=== PATIENT | male | born 1980 | race African-American/Black ===

== ENCOUNTER 2019-05-19 13:36 | Outpatient (CLI) | payer OTHER ==
[~2019-05-19] VITALS: Ht 189 cm; Wt 99.1 kg
== END 2019-05-19 13:48 | disposition home or self-care (01) ==
LOC: PREOP 13:36
PROVIDERS: ATTEND Surgery
DX: Z01.818 Encounter for other preprocedural examination (principal)

== ENCOUNTER 2019-07-09 08:25 | Outpatient (CLI) | payer OTHER ==
[~2019-07-09] VITALS: Ht 188 cm; Wt 100.0 kg
== END 2019-07-09 12:08 ==
LOC: PREOP 08:25
PROVIDERS: ATTEND Surgery
DX: Z01.818 Encounter for other preprocedural examination (principal)

== ENCOUNTER 2019-07-15 07:09 | Inpatient (IN) | payer OTHER ==
[~2019-07-15] VITALS: Ht 188 cm; Wt 100.0 kg
[2019-07-15] VITALS (10 sets, daily range): BP systolic 119–144; BP diastolic 60–91
[2019-07-15] MEDS ORDERED: SEVOFLURANE (ULTANE) 15 ML INHAL SOLN ONE ×3 (07:10→11:38)
[2019-07-15] MEDS ORDERED: fentaNYL INJECTION 100 MCG/2 ML AMP ONE (07:10)
[2019-07-15] MEDS ORDERED: SUCCINYLCHOLINE INJ 100 MG/5 ML SYR ONE (07:10)
[2019-07-15] MEDS ORDERED: ONDANSETRON 4 MG/2 ML (SDV) Z0FRAN ONE (07:10)
[2019-07-15] MEDS ORDERED: ROCURONIUM 10 MG/ML 5 ML SYRINGE IV ONE ×2 (07:10→09:41)
[2019-07-15] MEDS ORDERED: proPOfol 200 MG/20 ML (DIPRIVAN) VIAL IV ONE ×2 (07:10→10:50)
[2019-07-15] MEDS ORDERED: LIDOCAINE PF 2% 5 ML (XYLOCAINE) VIAL ONE (07:10)
[2019-07-15] MEDS ORDERED: DEXAMETHASONE 10 MG/ML (DECADRON) 1 ML VIAL ONE (07:10)
[2019-07-15] MEDS ORDERED: MIDAZOLAM 2 MG/2 ML (VERSED) VIAL ONE (07:11)
[2019-07-15] MEDS ORDERED: CATHETER FLUSH 10 ML SYR IV PRN (07:30)
[2019-07-15] MEDS ORDERED: ceFAZolin 2 GM IV Premixed 50 ML IV ONE (07:30)
[2019-07-15 07:44] LABS: BASOPHILS % (AUTO) 1 % (0-10); EOSINOPHILS # (AUTO) 0.1 10^3/uL (0.0-0.3); EOSINOPHILS % (AUTO) 2 % (0-10); HEMATOCRIT 46 % (40-54); HEMOGLOBIN 15.3 G/DL (13.3-17.7); LYMPHOCYTES # (AUTO) 2.1 X 10^3 (1.0-4.0); LYMPHOCYTES % (AUTO) 33 % (12-44); MEAN CORPUSCULAR HEMOGLOBIN 28 PG (25-34); MEAN CORPUSCULAR HGB CONC 33 G/DL (32-36); MEAN CORPUSCULAR VOLUME 84 FL (80-99); MEAN PLATELET VOLUME 10.5 FL (7.4-10.4); MONOCYTES # (AUTO) 0.7 X 10^3 (0.0-1.0); MONOCYTES % (AUTO) 11 % (0-12); NEUTROPHILS # (AUTO) 3.5 X 10^3 (1.8-7.8); NEUTROPHILS % (AUTO) 55 % (42-75); PLATELET COUNT 215 10^3/uL (130-400); RED CELL DISTRIBUTION WIDTH 14.8 % (10.0-14.5); WHITE BLOOD COUNT 6.3 10^3/uL (4.3-11.0)
[2019-07-15] MEDS ORDERED: MIDAZOLAM 2 MG/2 ML (VERSED) VIAL IV ONE (07:45)
[2019-07-15] MEDS: LACTATED RINGERS 1,000 ML IV PRN ×3 (07:50→11:41)
--- NOTE | 2019-07-15 08:02 | Progress Note-Pre Operative ---
Pre-Operative Progress Note H&P Reviewed The H&P was reviewed, patient examined and no changes noted. Time Seen by Provider: 07:58 Date H&P Reviewed: Jul 15, 2019 Time H&P Reviewed: 07:59 Pre-Operative Diagnosis: Large sigmoid Colon polyp COREY ARTEAGA DO Jul 15, 2019 08:02
[2019-07-15] MEDS ORDERED: metroNIDAZOLE 500MG/100ML IVPB 100 ML ONE (08:16)
[2019-07-15] MEDS ORDERED: BUP/EPI 0.5% 1:200,000 (SENSORCAINE) 30 ML VIAL ONE (08:49)
[2019-07-15] MEDS ORDERED: metroNIDAZOLE 500MG/100ML IVPB 100 ML IV ONE (09:00)
[2019-07-15] MEDS ORDERED: GLYCOPYRROLATE 0.2 MG/ML (ROBINUL) 2 ML VIAL ONE ×2 (09:09→10:48)
[2019-07-15] MEDS ORDERED: HYDROmorphone 2 MG/ML VIAL (DILAUDID) ONE (09:20)
[2019-07-15] MEDS ORDERED: ESMOLOL 100 MG/10 ML (BREVIBLOC) VIAL ONE (10:16)
[2019-07-15] MEDS ORDERED: LABETALOL HCL 20 MG/4 ML VIAL ONE (10:16)
[2019-07-15] MEDS ORDERED: NEOSTIGMINE 3 MG/3 ML VIAL ONE (10:48)
[2019-07-15] MEDS ORDERED: ROPIVACAINE 5MG/ML 30ML VIAL ONE (10:50)
[2019-07-15] MEDS ORDERED: KETOROLAC 30 MG/ML VIAL ONE (10:53)
[2019-07-15] MEDS: KETOROLAC 30 MG/ML VIAL IVP SCH ×3 (11:10→22:26)
--- NOTE | 2019-07-15 11:12 | Progress Note-Post Operative ---
Post-Operative Progess Note Surgeon (s)/Commercial Construction Estimator (s) Surgeon COREY ARTEAGA DO Commercial Construction Estimator: Wily Pre-Operative Diagnosis Large sigmoid Colon polyp Post-Operative Diagnosis same pending path Procedure & Operative Findings Date of Procedure 07/15/19 Procedure Performed/Findings 1. Lap Hand asst Sigmoid colon resection 2. Appendectomy Anesthesia Type GET Estimated Blood Loss Estimated blood loss (mL): 50ml Specimens/Packing Specimens Removed sigmoid colon appendix peritoneal mass COREY ARTEAGA DO Jul 15, 2019 11:12
[2019-07-15] MEDS ORDERED: ONDANSETRON 4 MG/2 ML (SDV) Z0FRAN IVP PRN ×2 (11:15→11:45)
[2019-07-15] MEDS ORDERED: HYDROmorphone 2 MG/ML VIAL (DILAUDID) IV ONE (11:45)
[2019-07-15] MEDS: LACTATED RINGERS 1,000 ML IV SCH ×2 (14:41→19:37)
[2019-07-15] MEDS: ACETAMINOPHEN 500 MG TAB (TYLENOL) PO SCH ×2 (14:42→22:30)
--- NOTE | 2019-07-15 15:32 | OPERATIVE REPORT ---
DATE OF SERVICE: 07/15/2019 PREOPERATIVE DIAGNOSIS: Large sigmoid colon polyp. POSTOPERATIVE DIAGNOSIS: Large sigmoid colon polyp, pending pathology. PROCEDURES: 1. Laparoscopic hand assisted sigmoid colon resection. 2. Appendectomy. SURGEON: Shane Boyd DO MISSILE MECHANIC: Paul Julien DO. ANESTHESIA: General endotracheal tube. SPECIMEN: 1. Portion of sigmoid colon. 2. Appendix. BLOOD LOSS: Less than 50 mL. FLUIDS: Per anesthesia. POSTOPERATIVE CONDITION: Stable. INDICATION FOR PROCEDURE: The patient is a 39-year-old male who had rectal bleeding and a colonoscopy showed multiple large polyps, one was so large we could not remove it. Therefore, decided to remove it so it would not turn into cancer. It may not have been a precancerous lesion because the biopsy did not show adenomatous polyp; it was possible that anohter section could be adenoma and felt like it was so big that it is best to remove this. FINDINGS: The patient had a sigmoid colon resection as well as the appendix was thickened, firm, looked like it was bigger than a centimeter and so it was removed as well. PROCEDURE NOTE: After informed consent was obtained, the patient was brought to the operating room, placed on the table in lithotomy position. He was sterilely prepped and draped in normal fashion. Local lidocaine was used to infiltrate the skin just above the umbilicus to below this and then made an incision with #15 blade, carried down through the skin into subcutaneous tissue, then deepened down to subcutaneous tissue with Bovie electrocautery down to the fascia. Fascia was incised with Bovie electrocautery and bluntly entered the abdomen and then increased the incision superiorly and inferiorly with Bovie electrocautery and then placed a wound protector and then held the abdominal wall up and then placed a 12 mm trocar port in the left side of the abdomen about the height of the umbilicus using local lidocaine, 11 blade for stab incision and then the VersaStep system done under direct visualization, watched to come in and place the port and then attached the GelPort into the wound protector and then using a 12 mm port, created pneumoperitoneum. At this point, then made another small incision in the right side of the abdomen. Using first local lidocaine, 11 blade for stab incision and VersaStep system, all done under direct visualization, placed a 5 mm port. The patient placed slightly Trendelenburg. There were some adhesions in the left pelvis. Picture was taken. These were taken down with Bovie electrocautery spatula cautery to do this and then came along the white line of Toldt in the left pericolic gutter with the spatula cautery to free this sigmoid colon and descending colon up, could see the previous site of tattooing. This was a tattoo below the mass. Continued the cautery to score the mesentery down and then able to get under and below the area of tattooing with blunt dissection as well as with Bovie electrocautery, able to make a defect in the mesentery and then able to get under and around the sigmoid colon upper portion of the rectum. At this point, then opened. Placed a contour stapler across the colon, clamped and fired, thereby transecting this and then at this point, noted the appendix, I felt that it was thickened, firm, looked like it has been a cm, elected to take this out using LigaSure clamping, coagulating and transecting coming across the mesoappendix in this fashion and then using an Endo-SOHEILA to clamp across the base of appendix, clamped and fired, thereby transecting it, passed this off table. Then come across the mesentery of the sigmoid colon coming from inferior to superior going about 6 inches above the tattooed area and then while we did this with the port back on and then opened the port pulled this portion of colon up and then placed, got under the mesentery with blunt dissection as well as Bovie electrocautery and then placed a pursestring device and then above this pursestring clamped it and then above this pursestring placed a bowel clamp and then cut this portion off and fired the pursestring and then removed the colon. I then placed a 29 ILS anvil in the superior aspect of the descending colon and then tied this down with the purse pursestring we had previously placed. Next freed up some of the fat around this and then I went below and placed a 25, then 28 and 31 rectal dilator. Then placed the ILS stapler through the rectum up and could see this come right to the edge of the previous resection of this inferior portion and then brought out the trocar through the tinea. Attached the anvil to the trocar and then tightened this down. Tightened all the way to the green area, held for 30 seconds, then clamped and fired, held for 20 seconds and then turned 3/4 turn to remove this stapling device. Removed very easily, then placed saline in the abdomen to cover the staple line. Dr. Julien held the colon above the staple line and I used a rigid sigmoidoscopy and then insufflated. No air bubble seen. This was a good anastomosis and removed this and allowed the air to escape. I then checked the donuts on the back table, a good donut pieces of tissue. I then changed my gown and gloves. Dr. Julien now switched gloves and at this point, we then closed the incision closing from the inferior portion to the superior portion with #1 double stranded PDS and then tying this to itself. Reinsufflated and use scope to check the incision; which looked good. Took a picture of this and then removed all ports under direct visualization, allowed pneumoperitoneum to escape and then closed all the incision with filiberto then irrigated the midline incision then closed the midline incision with filiberto. Area was cleaned and dried, dressing was placed. The patient tolerated the procedure. Sponge, instrument and needle count correct at the end of the case. Dr. Julien assisted in this case helping to make incisions, close incisions, hold anatomy out of the way and identify anatomy as well. Job ID: [id number] DocumentID: [id number] Dictated Date: 07/15/2019 13:16:45 Laundry Helper Date: 07/15/2019 15:32:20 Dictated By: DO CHU CERON
[2019-07-15] MEDS: ceFAZolin 2 GM IV Premixed 50 ML IV SCH (16:27)
[2019-07-15] MEDS: metroNIDAZOLE 500MG/100ML IVPB 100 ML IV SCH (16:27)
[2019-07-15] MEDS: HYDROcodone/APAP 5 MG/325 MG (LORTAB) TAB PO PRN (18:46)
[2019-07-16 00:22] VITALS: BP 130/70
[2019-07-16] MEDS: ceFAZolin 2 GM IV Premixed 50 ML IV SCH (00:59)
[2019-07-16] MEDS: metroNIDAZOLE 500MG/100ML IVPB 100 ML IV SCH (01:38)
[2019-07-16] MEDS: HYDROcodone/APAP 5 MG/325 MG (LORTAB) TAB PO PRN ×3 (01:47→20:09)
[2019-07-16] MEDS: LACTATED RINGERS 1,000 ML IV SCH ×2 (03:16→10:37)
[2019-07-16 03:42] VITALS: BP 149/71
[2019-07-16] MEDS: ACETAMINOPHEN 500 MG TAB (TYLENOL) PO SCH ×3 (05:29→22:00)
[2019-07-16] MEDS: KETOROLAC 30 MG/ML VIAL IVP SCH ×4 (05:47→23:03)
[2019-07-16 08:00] VITALS: BP 144/76
[2019-07-16] MEDS ORDERED: PANTOPRAZOLE 40 MG (PROTONIX) VIAL IVP SCH (09:00)
[2019-07-16] MEDS: ENOXAPARIN 40 MG/0.4 ML (LOVENOX) SYR SC SCH (10:45)
[2019-07-16 12:00] VITALS: BP 143/77
--- NOTE | 2019-07-16 12:20 | Progress Note - Surgery ---
Subjective Time Seen by a Provider: 11:02 Subjective/Events-last exam Pt seen and examined, states minimal pain, having some flatus and is tolerating clears. Review of Systems Pulmonary: No Dyspnea, No Cough Cardiovascular: No: Chest Pain, Palpitations Gastrointestinal: No: Nausea, Vomiting Objective Exam Vital Signs Date Time Temp Pulse Resp B/P (MAP) Pulse Ox O2 Delivery O2 Flow Rate FiO2 07/16/19 09:00 Room Air 07/16/19 08:00 37.0 76 20 144/76 (98) 93 Room Air 07/16/19 03:42 38.1 90 18 149/71 (97) 100 Room Air 07/16/19 00:22 37.3 76 20 130/70 (90) 93 Room Air 07/15/19 21:00 Room Air 07/15/19 20:20 36.9 94 16 137/78 (97) 100 Room Air 07/15/19 17:23 92 Room Air 10.00 07/15/19 16:16 36.5 92 16 144/88 (106) 92 Room Air 07/15/19 15:36 93 Room Air 07/15/19 12:30 Room Air 07/15/19 12:30 36.8 20 135/82 (99) 97 Room Air 07/15/19 12:20 20 140/91 (107) 97 Room Air I & O 07/16/19 07:00 Intake Total 4630 ml Output Total 3150 ml Balance 1480 ml Capillary Refill : Less Than 3 SecondsLess Than 3 Seconds General Appearance: No Apparent Distress HEENT: PERRL/EOMI Respiratory: Lungs Clear, Normal Breath Sounds, No Accessory Muscle Use Cardiovascular: Regular Rate, Rhythm, No Murmur Gastrointestinal: soft, distended (very minimally), tenderness (minimal at incision), other (incisions are c/d/i) Results Lab Microbiology 07/15/19 MRSA Screen - Final, Complete MRSA not isolated Assessment/Plan Assessment/Plan Assessment/Plan S/P Sigmoid colon resection Increase diet to soft, continue ambulation and IS use. Clinical Quality Measures DVT/VTE Risk/Contraindication: Risk Factor Score Per Nursin RFS Level Per Nursing on Admit: 1=Low/No VTE PPX COREY ARTEAGA DO Jul 16, 2019 12:20
[2019-07-16 16:00] VITALS: BP 138/70
[2019-07-16 20:00] VITALS: BP 136/88
[2019-07-17] VITALS: BP_SYST 128; BP_SYST 129; BP_DIAS 76; BP_DIAS 78
[2019-07-17] MEDS: HYDROcodone/APAP 5 MG/325 MG (LORTAB) TAB PO PRN ×2 (02:26→09:57)
[2019-07-17 04:00] VITALS: BP 129/74
[2019-07-17] MEDS: KETOROLAC 30 MG/ML VIAL IVP SCH ×2 (05:30→10:47)
[2019-07-17] MEDS: ACETAMINOPHEN 500 MG TAB (TYLENOL) PO SCH (06:00)
[2019-07-17 06:01] VITALS: BP 129/74
--- NOTE | 2019-07-17 08:47 | Anesthesia-General Post-Op ---
General Patient Condition Mental Status/LOC: Same as Preop Cardiovascular: Satisfactory Nausea/Vomiting: Absent Respiratory: Satisfactory Pain: Controlled Complications: Absent Post Op Complications Complications None Follow Up Care/Instructions Patient Instructions None needed. Anesthesia/Patient Condition Patient Condition Patient is doing well, no complaints, stable vital signs, no apparent adverse anesthesia problems. No complications reported per nursing. MARLON ARORA CRNA Jul 17, 2019 08:47
[2019-07-17 08:49] VITALS: BP 133/78
[2019-07-17] MEDS: ENOXAPARIN 40 MG/0.4 ML (LOVENOX) SYR SC SCH (10:47)
--- NOTE | 2019-07-17 11:06 | Progress Note - Surgery ---
Subjective Time Seen by a Provider: 10:58 Subjective/Events-last exam Pt seen and examined, states he is doing fine but is worried about pain control when he goes home. Review of Systems General: No Chills, No Night Sweats Pulmonary: No Dyspnea, No Cough Cardiovascular: No: Chest Pain, Palpitations Gastrointestinal: No: Nausea, Vomiting Objective Exam Vital Signs Date Time Temp Pulse Resp B/P (MAP) Pulse Ox O2 Delivery O2 Flow Rate FiO2 07/17/19 08:49 37.3 71 18 133/78 (96) 92 Room Air 07/17/19 08:05 Room Air 07/17/19 06:01 36.8 78 18 129/74 (92) 93 Room Air 07/17/19 04:00 36.8 78 18 129/74 (92) 93 Room Air 07/17/19 00:00 36.5 64 18 128/78 (95) 91 Room Air 07/16/19 20:30 93 Room Air 07/16/19 20:00 36.8 71 18 136/88 (104) 97 Room Air 07/16/19 16:00 37.0 81 16 138/70 (92) 95 Room Air 07/16/19 12:00 37.2 73 20 143/77 (99) 95 Room Air I & O 07/17/19 07:00 Intake Total 1880 ml Output Total 750 ml Balance 1130 ml Capillary Refill : Less Than 3 SecondsLess Than 3 Seconds General Appearance: No Apparent Distress Respiratory: Lungs Clear, Normal Breath Sounds, No Accessory Muscle Use Cardiovascular: Regular Rate, Rhythm, No Murmur Gastrointestinal: soft; No distended; tenderness (minimal at incision), other (incisions are c/d/i) Results Lab Laboratory Tests 07/16/19 12:18: Glucometer 132H Microbiology 07/15/19 MRSA Screen - Final, Complete MRSA not isolated Assessment/Plan Assessment/Plan Assessment/Plan S/P Sigmoid colon resection D/C IV and D/C home Clinical Quality Measures DVT/VTE Risk/Contraindication: Risk Factor Score Per Nursin RFS Level Per Nursing on Admit: 1=Low/No VTE PPX COREY ARTEAGA DO Jul 17, 2019 11:06
[2019-07-17] MEDS ORDERED: KETO10TA PO (11:09)
--- NOTE | 2019-07-17 11:11 | Discharge Inst-Surgical ---
Discharge Inst-Surgical Depart Medication/Instructions New, Converted or Re-Newed RX: Transmitted to Pharmacy Patient Instructions Follow up Appt: Make appointment for next week. [phone] Instructions: No lifting greater than 20 pounds. No strenuous activity. May shower in 24 hours, no tub bath or soaking. Use incentive spirometer at home as directed. No Smoking Skin/Wound Care: Care of filiberto, keep clean and dry. Symptoms to Report: Appetite Changes, Extremity Discoloration, Numbness/Tingling, Swelling Increased, Bleeding Excessive, Eyesight Changes, Pain Increased, Urine Color Change, Constipation(Persistent), Fever over 101 degree F, Pain/Pressure in chest, Urinating Difficulty, Cough Up/Vomit Blood, Heart Beat Irreg/Pounding, Pain/Pressure in jaw, Cramps in feet or legs, Lightheadedness, Pain/Pressure in shoulder, Diarrhea(Persistent), Memory Changes Suddenly, Questions/Concerns, Weight gain consecutive days, Dizziness/Fainting, Nausea/Vomiting, Shortness of Breath, Weight gain over 2 pounds If questions or concerns contact your physician Or seek help at emergency department. Activity Activity as Tolerated: Yes Activity Instructions: Avoid Stress to Incision Driving Instructions: No Driving/Refer to Dr. Johnson Discharge Diet: No Restrictions Diet After 24 Hours: Clear Liquid if Nauseous If Any Problems/Questions/Issu: Contact Your Physician, Go to Emergency Room Skin/Wound Care Infection Signs and Symptoms: Increased Redness, Foul Odor of Wound, Increased Drainage, Skin Itchy or Has a Rash, Increased Swelling, Temperature Above 101 F Bathing Instructions: Shower Stitches/Filiberto/Dermabond Dis: Care of COREY Layton DO Jul 17, 2019 11:11
[2019-07-17 11:51] VITALS: BP 148/81
--- NOTE | 2019-07-17 14:19 | NUR ---
ADÁN PEÑA demonstrates understanding of discharge instructions and accurately returns instructions upon questioning. Copy of Post-Discharge Instructions and Medication Discharge Instructions given to pt. ADÁN PEÑA is able to manage continuing needs after discharge. Patients belongings returned to pt. Skin dry, midline incision noted with 3 lap sites all dressings in place; no breakdown noted. Patient discharged from [facility] on 07/17/2019 at 1420 . ADÁN PEÑA left floor via , accompanied by staff.
[2019-07-17 14:20] VITALS: BP 148/81
== END 2019-07-17 14:20 | disposition home or self-care (01) | DRG 342 ==
LOC: 4TH 07:09 → SURG 07:10 → 4TH 12:30
PROVIDERS: ADMIT Surgery; ATTEND Surgery
PROC: 0DTJ0ZZ Resection of Appendix, Open Approach (ICD-10-PCS; 2019-07-15)
PROC: 0DBN0ZX Excision of Sigmoid Colon, Open Approach, Diagnostic (ICD-10-PCS; principal; 2019-07-15 09:39)
DX: D12.5 Benign neoplasm of sigmoid colon (principal); K38.8 Other specified diseases of appendix; K92.2 Gastrointestinal hemorrhage, unspecified; K21.9 Gastro-esophageal reflux disease without esophagitis; K64.8 Other hemorrhoids; F17.210 Nicotine dependence, cigarettes, uncomplicated; Z80.0 Family history of malignant neoplasm of digestive organs
CPT/HCPCS: 36415; 82962; 85025; 86850; 86900; 86901; 87081; 88304; 88305; 88307; 94664

== ENCOUNTER 2022-04-10 23:06 | Emergency (ER) | payer OTHER ==
[~2022-04-10 23:06] MED LIST: KETO10TA PO
--- NOTE | 2022-04-10 23:23 | ED Chest Pain ---
General Stated Complaint: SOB,CP Source: patient Exam Limitations: no limitations History of Present Illness Date Seen by Provider: Apr 10, 2022 Time Seen by Provider: 23:11 Initial Comments 41-year-old male presents to the emergency department for chest pain. Symptoms present for about 24 hours and states it feels like a pressure "surrounding my heart." He denies any fevers or chills but states he has felt slightly ill for the last couple of days. He does endorse a cough that is nonproductive. This pain has been constant, nonradiating without any obvious aggravating or alleviating factors. He has had stress test about 15 years ago which he states was normal. He does not recall if this is similar type pain presentation. He denies any history of high blood pressure, high cholesterol or diabetes. He does smoke cigarettes. He occasionally smokes marijuana. Allergies and Home Medications Allergies Coded Allergies: No Known Drug Allergies (Unverified , 07/15/19) Patient Home Medication List Home Medication List Reviewed: Yes Ketorolac Tromethamine (Ketorolac Tromethamine) 10 Mg Tablet, 20 MG PO Q8H Prescribed by: COREY ARTEAGA on 07/17/19 1109 Review of Systems Review of Systems Constitutional: no symptoms reported EENTM: No Symptoms Reported Respiratory: Cough Cardiovascular: Chest Pain Gastrointestinal: No Symptoms Reported Genitourinary: No Symptoms Reported Musculoskeletal: no symptoms reported Skin: no symptoms reported Psychiatric/Neurological: No Symptoms Reported Endocrine: No Symptoms Reported Hematologic/Lymphatic: No Symptoms Reported Past Fszeuai-Erkmze-Vlbugw Hx Patient Social History Tobacco Use?: Yes Use of E-Cig and/or Vaping dev: No Substance use?: Yes Substance type: Marijuana Alcohol Use?: No Seasonal Allergies Seasonal Allergies: No Past Medical History Surgery/Hospitalization HX: Colon resection. Surgeries: Yes (HERNIA) Respiratory: No Currently Using CPAP: No Currently Using BIPAP: No Cardiac: No Neurological: No Genitourinary: No Gastrointestinal: Yes (rectal bleeding) Hemorrhoids, Polyps Musculoskeletal: No Endocrine: No HEENT: No Cancer: No Psychosocial: No Integumentary: No Blood Disorders: No Family Medical History Reviewed Nursing Family Hx Colon cancer 19 FATHER Diabetes mellitus 19 FATHER No Pertinent Family Hx Physical Exam Vital Signs Vital Signs - First Documented 04/10/22 23:15 Temp 36.5 Pulse 78 Resp 18 B/P (MAP) 133/99 (110) Pulse Ox 99 O2 Delivery Room Air Capillary Refill : Height, Weight, BMI Height: '" Weight: lbs. oz. kg; 28.29 BMI Method: General Appearance: No Apparent Distress, WD/WN HEENT: Normal ENT Inspection, Pharynx Normal Neck: Full Range of Motion, Normal Inspection, Non Tender, Supple Respiratory: Chest Non Tender, Lungs Clear, Normal Breath Sounds, No Accessory Muscle Use, No Respiratory Distress Cardiovascular: Regular Rate, Rhythm, No Edema, No JVD, No Murmur, Normal Peripheral Pulses Gastrointestinal: Normal Bowel Sounds, No Organomegaly, No Pulsatile Mass, Non Tender, Soft Extremity: Normal Capillary Refill, Normal Inspection, Normal Range of Motion, Non Tender, No Calf Tenderness Neurologic/Psychiatric: Alert, Oriented x3, No Motor/Sensory Deficits Skin: Normal Color, Warm/Dry Lymphatic: No Adenopathy Progress/Results/Core Measures Results/Orders Lab Results Laboratory Tests Test 04/10/22 23:40 Range/Units White Blood Count 5.1 4.3-11.0 10^3/uL Red Blood Count 5.61 H 4.30-5.52 10^6/uL Hemoglobin 14.7 13.3-17.7 g/dL Hematocrit 45 40-54 % Mean Corpuscular Volume 81 80-99 fL Mean Corpuscular Hemoglobin 26 25-34 pg Mean Corpuscular Hemoglobin Concent 33 32-36 g/dL Red Cell Distribution Width 15.4 H 10.0-14.5 % Platelet Count 165 130-400 10^3/uL Mean Platelet Volume 10.7 9.0-12.2 fL Immature Granulocyte % (Auto) 0 % Neutrophils (%) (Auto) 70 42-75 % Lymphocytes (%) (Auto) 18 12-44 % Monocytes (%) (Auto) 11 0-12 % Eosinophils (%) (Auto) 0 0-10 % Basophils (%) (Auto) 0 0-10 % Neutrophils # (Auto) 3.6 1.8-7.8 10^3/uL Lymphocytes # (Auto) 0.9 L 1.0-4.0 10^3/uL Monocytes # (Auto) 0.6 0.0-1.0 10^3/uL Eosinophils # (Auto) 0.0 0.0-0.3 10^3/uL Basophils # (Auto) 0.0 0.0-0.1 10^3/uL Immature Granulocyte # (Auto) 0.0 0.0-0.1 10^3/uL Sodium Level 133 L 135-145 MMOL/L Potassium Level 3.8 3.6-5.0 MMOL/L Chloride Level 103 98-107 MMOL/L Carbon Dioxide Level 19 L 21-32 MMOL/L Anion Gap 11 5-14 MMOL/L Blood Urea Nitrogen 10 7-18 MG/DL Creatinine 0.86 0.60-1.30 MG/DL Estimat Glomerular Filtration Rate 111 BUN/Creatinine Ratio 12 Glucose Level 111 H 70-105 MG/DL Calcium Level 8.9 8.5-10.1 MG/DL Corrected Calcium 9.1 8.5-10.1 MG/DL Total Bilirubin 0.5 0.1-1.0 MG/DL Aspartate Amino Transf (AST/SGOT) 33 5-34 U/L Alanine Aminotransferase (ALT/SGPT) 35 0-55 U/L Alkaline Phosphatase 72 40-136 U/L Total Protein 7.7 6.4-8.2 GM/DL Albumin 3.8 3.2-4.5 GM/DL My Orders Orders - EVA BROWN DO Ekg Tracing (04/10/22 23:10) Continuous Ekg Monitoring (04/10/22 23:10) Cbc With Automated Diff (04/10/22 23:24) Chest 1 View, Ap/Pa Only (04/10/22 23:24) Comprehensive Metabolic Panel (04/10/22 23:24) Ed Iv/Invasive Line Start (04/10/22 23:24) Troponin I Cottle (04/10/22 23:24) Aspirin Chewable Tablet (Baby Aspirin Ch (04/10/22 23:30) Ondansetron Injection (Zofran Injectio (04/10/22 23:45) Medications Given in ED Current Medications Medications Dose Ordered Sig/Jorgito Route Start Time Stop Time Status Last Admin Dose Admin Aspirin 324 mg ONCE ONCE PO 04/10/22 23:30 04/10/22 23:31 DC 04/10/22 23:35 324 MG Ondansetron HCl 8 mg ONCE ONCE IVP 04/10/22 23:45 04/10/22 23:46 DC 04/10/22 23:41 8 MG Vital Signs/I&O 04/10/22 23:15 Temp 36.5 Pulse 78 Resp 18 B/P (MAP) 133/99 (110) Pulse Ox 99 O2 Delivery Room Air Comment Sinus rhythm with rate of 76 bpm. Normal intervals. Normal axis. No ST or T wave abnormalities. No ectopy. No STEMI. Departure Communication (Admissions) Patient is hemodynamically stable. Chest x-ray negative. EKG is nonischemic and troponin is negative. The remainder of his electrolytes and chemistry panel are unremarkable. CBC shows no evidence of anemia. No leukocytosis. Heart score is 1 placing him at low risk for major adverse cardiac events in the next 30 days. I discussed with the patient that I did not think there is emergent need for further testing. He states understanding. He is counseled that is important he follow-up with his primary doctor in the next 2 to 3 days for further evaluation and treatment recommendations. He is given strict return precautions for worsening symptoms. He states understanding. Impression Primary Impression: Chest pain Qualified Codes: R07.9 - Chest pain, unspecified Disposition: HOME, SELF-CARE Condition: Stable Departure-Patient Inst. Referrals: [facility] [place] (PCP/Family) Primary Care Physician Patient Instructions: Chest Pain (DC) Add. Discharge Instructions: As discussed your testing, exam and vital signs are normal and reassuring. Use ibuprofen and Tylenol as needed for pains. Follow-up with your primary doctor in the next 48 to 72 hours for further evaluation. To see if they need further testing necessary. Chest x-ray is normal, there is no evidence for pneumonia or other abnormality. Electrical tracing of your heart does not show a heart attack. We also checked an enzyme in your blood to see if there is any damage to the muscle of your heart and this is normal as well. Please return to the emergency department immediately for any severe pains, shortness of breath or if your symptoms change in any way concerning to you. Follow-up with your primary doctor for any nonemergent needs EVA BROWN DO Apr 10, 2022 23:23
[2022-04-10] MEDS ORDERED: ASPIRIN 81 MG CHEW (CHILDREN'S ASA) PO ONE (23:30)
[2022-04-10] MEDS ORDERED: ONDANSETRON 4 MG/2 ML (SDV) Z0FRAN IVP ONE (23:45)
[2022-04-10 23:49] LABS: BASOPHILS % (AUTO) 0 % (0-10); EOSINOPHILS % (AUTO) 0 % (0-10); HEMATOCRIT 45 % (40-54); HEMOGLOBIN 14.7 g/dL (13.3-17.7); LYMPHOCYTES # (AUTO) 0.9 10^3/uL (1.0-4.0); LYMPHOCYTES % (AUTO) 18 % (12-44); MEAN CORPUSCULAR HEMOGLOBIN 26 pg (25-34); MEAN CORPUSCULAR HGB CONC 33 g/dL (32-36); MEAN CORPUSCULAR VOLUME 81 fL (80-99); MEAN PLATELET VOLUME 10.7 fL (9.0-12.2); MONOCYTES # (AUTO) 0.6 10^3/uL (0.0-1.0); MONOCYTES % (AUTO) 11 % (0-12); NEUTROPHILS # (AUTO) 3.6 10^3/uL (1.8-7.8); NEUTROPHILS % (AUTO) 70 % (42-75); PLATELET COUNT 165 10^3/uL (130-400); WHITE BLOOD COUNT 5.1 10^3/uL (4.3-11.0)
[2022-04-11] LABS: ALBUMIN 3.8 GM/DL (3.2-4.5)
[2022-04-11 00:02] LABS: CALCIUM 8.9 MG/DL (8.5-10.1); POTASSIUM 3.8 MMOL/L (3.6-5.0)
[2022-04-11 00:03] LABS: TOTAL PROTEIN 7.7 GM/DL (6.4-8.2)
[2022-04-11 00:04] LABS: BILIRUBIN,TOTAL 0.5 MG/DL (0.1-1.0)
[2022-04-11 00:06] LABS: CREATININE SERUM 0.86 MG/DL (0.60-1.30)
[2022-04-11 00:18] VITALS: BP 141/94
--- NOTE | 2022-04-11 07:24 | Diagnostic Imaging Report ---
INDICATION: Pain EXAMINATION: Chest 04/10/2022. FINDINGS: The cardiomediastinal silhouette is unremarkable. The pulmonary vasculature is within normal limits. The lungs and pleural spaces are clear. IMPRESSION: No evidence of an acute cardiopulmonary process. Dictated by: Dictated on workstation # [id number]
== END 2022-04-11 00:31 | disposition home or self-care (01) ==
LOC: EDUNIT# 23:06 → ER 23:09
DX: R07.89 Other chest pain (principal); F17.210 Nicotine dependence, cigarettes, uncomplicated; Z28.310 Unvaccinated for COVID-19
CPT/HCPCS: 36415; 71045; 80053; 84484; 85025; 93005

== ENCOUNTER 2022-04-12 11:40 | Inpatient (IN) | payer SELFPAY ==
[~2022-04-12] VITALS: Ht 190.5 cm; Wt 101.6 kg
[2022-04-12] MEDS ORDERED: LIDOCAINE 2% VISCOUS 15 ML UDC PO ONE (12:15)
[2022-04-12] MEDS ORDERED: ANTACID SUSP 30 ML UDC (MYLANTA) PO ONE (12:15)
[2022-04-12 12:16] LABS: BASOPHILS % (AUTO) 0 % (0-10); EOSINOPHILS % (AUTO) 0 % (0-10); HEMATOCRIT 51 % (40-54); HEMOGLOBIN 16.2 g/dL (13.3-17.7); LYMPHOCYTES # (AUTO) 1.2 10^3/uL (1.0-4.0); LYMPHOCYTES % (AUTO) 24 % (12-44); MEAN CORPUSCULAR HEMOGLOBIN 26 pg (25-34); MEAN CORPUSCULAR HGB CONC 32 g/dL (32-36); MEAN CORPUSCULAR VOLUME 82 fL (80-99); MEAN PLATELET VOLUME 10.6 fL (9.0-12.2); MONOCYTES # (AUTO) 0.4 10^3/uL (0.0-1.0); MONOCYTES % (AUTO) 8 % (0-12); NEUTROPHILS # (AUTO) 3.4 10^3/uL (1.8-7.8); NEUTROPHILS % (AUTO) 68 % (42-75); PLATELET COUNT 178 10^3/uL (130-400); WHITE BLOOD COUNT 5.1 10^3/uL (4.3-11.0)
--- NOTE | 2022-04-12 12:18 | ED Chest Pain ---
General Chief Complaint: Chest Pain Stated Complaint: CHEST CONGESTION | HEARTBURN | WEAKNESS Source: patient Exam Limitations: no limitations History of Present Illness Date Seen by Provider: Apr 12, 2022 Time Seen by Provider: 12:00 Initial Comments 41-year-old male presents with left-sided chest pain and weakness since Saturday. States the pain is constant but worse when walking and lying down. Describes the pain as tight right now. Patient states "it feels like I will have a heart attack at night," describes the pain as someone pushing down on his heart when lying in bed. He reports shortness of air, and feeling like he is going to pass out when walking. Reports bilateral leg pain, upper abdominal pain, nausea with one episode of vomiting 2 days ago, and 1 episode of loose stools 2 days ago. States he has not been eating. He was seen 2 days ago for the same symptoms, and had a negative cardiac work-up. Denies cough and headache. Denies significant past medical history. Is not on any medications currently. Patient does smoke cigarettes and marijuana. Location: other (left) Radiation: no radiation Associated Symptoms: abdominal pain; No back pain; dizziness, fever/chills (chills, no fever), nausea/vomiting, shortness of breath, weakness Allergies and Home Medications Allergies Coded Allergies: No Known Drug Allergies (Unverified , 07/15/19) Patient Home Medication List Home Medication List Reviewed: Yes Ketorolac Tromethamine (Ketorolac Tromethamine) 10 Mg Tablet, 20 MG PO Q8H Prescribed by: COREY ARTEAGA on 07/17/19 8821 Review of Systems Review of Systems Constitutional: see HPI Past Zqtedzl-Rwabwk-Iqmsnj Hx Seasonal Allergies Seasonal Allergies: No Past Medical History Surgery/Hospitalization HX: Colon resection. Surgeries: Yes (HERNIA) Respiratory: No Currently Using CPAP: No Currently Using BIPAP: No Cardiac: No Neurological: No Genitourinary: No Gastrointestinal: Yes (rectal bleeding) Hemorrhoids, Polyps Musculoskeletal: No Endocrine: No HEENT: No Cancer: No Psychosocial: No Integumentary: No Blood Disorders: No Family Medical History Colon cancer 19 FATHER Diabetes mellitus 19 FATHER No Pertinent Family Hx Physical Exam Vital Signs Vital Signs - First Documented 04/12/22 11:50 Temp 36.4 Pulse 82 Resp 19 B/P (MAP) 146/108 (121) Pulse Ox 100 O2 Delivery Room Air Capillary Refill : Height, Weight, BMI Height: '" Weight: lbs. oz. kg; 28.29 BMI Method: General Appearance: No Apparent Distress, WD/WN Neck: Normal Inspection, Supple Respiratory: Lungs Clear, Normal Breath Sounds, No Accessory Muscle Use, No Respiratory Distress Cardiovascular: Regular Rate, Rhythm, No Edema, No Gallop, No JVD, No Murmur Gastrointestinal: Normal Bowel Sounds, No Organomegaly, No Pulsatile Mass, Soft, Tenderness (mid upper and left upper) Extremity: Normal Inspection, Normal Range of Motion Neurologic/Psychiatric: Alert, Oriented x3, Normal Mood/Affect Skin: Normal Color, Warm/Dry Progress/Results/Core Measures Results/Orders Lab Results Laboratory Tests Test 04/12/22 12:02 04/12/22 12:15 04/12/22 15:04 Range/Units White Blood Count 5.1 4.3-11.0 10^3/uL Red Blood Count 6.13 H 4.30-5.52 10^6/uL Hemoglobin 16.2 13.3-17.7 g/dL Hematocrit 51 40-54 % Mean Corpuscular Volume 82 80-99 fL Mean Corpuscular Hemoglobin 26 25-34 pg Mean Corpuscular Hemoglobin Concent 32 32-36 g/dL Red Cell Distribution Width 16.8 H 10.0-14.5 % Platelet Count 178 130-400 10^3/uL Mean Platelet Volume 10.6 9.0-12.2 fL Immature Granulocyte % (Auto) 1 % Neutrophils (%) (Auto) 68 42-75 % Lymphocytes (%) (Auto) 24 12-44 % Monocytes (%) (Auto) 8 0-12 % Eosinophils (%) (Auto) 0 0-10 % Basophils (%) (Auto) 0 0-10 % Neutrophils # (Auto) 3.4 1.8-7.8 10^3/uL Lymphocytes # (Auto) 1.2 1.0-4.0 10^3/uL Monocytes # (Auto) 0.4 0.0-1.0 10^3/uL Eosinophils # (Auto) 0.0 0.0-0.3 10^3/uL Basophils # (Auto) 0.0 0.0-0.1 10^3/uL Immature Granulocyte # (Auto) 0.0 0.0-0.1 10^3/uL Prothrombin Time 13.7 12.2-14.7 SEC INR Comment 1.0 0.8-1.4 Activated Partial Thromboplast Time 32 24-35 SEC D-Dimer 1.22 H 0.00-0.49 UG/ML Sodium Level 135 135-145 MMOL/L Potassium Level 3.8 3.6-5.0 MMOL/L Chloride Level 100 98-107 MMOL/L Carbon Dioxide Level 20 L 21-32 MMOL/L Anion Gap 15 H 5-14 MMOL/L Blood Urea Nitrogen 15 7-18 MG/DL Creatinine 0.91 0.60-1.30 MG/DL Estimat Glomerular Filtration Rate 108 BUN/Creatinine Ratio 16 Glucose Level 102 70-105 MG/DL Calcium Level 9.1 8.5-10.1 MG/DL Corrected Calcium 9.0 8.5-10.1 MG/DL Magnesium Level 2.2 1.6-2.4 MG/DL Total Bilirubin 0.7 0.1-1.0 MG/DL Aspartate Amino Transf (AST/SGOT) 43 H 5-34 U/L Alanine Aminotransferase (ALT/SGPT) 44 0-55 U/L Alkaline Phosphatase 81 40-136 U/L Myoglobin 220.8 H 10.0-92.0 NG/ML Troponin I 0.029 H 0.033 H <0.028 NG/ML B-Type Natriuretic Peptide < 10.0 <100.0 PG/ML Total Protein 8.4 H 6.4-8.2 GM/DL Albumin 4.1 3.2-4.5 GM/DL Amylase Level 69 25-125 U/L Lipase 17 8-78 U/L Influenza Type A (RT-PCR) Not Detected Not Detecte Influenza Type B (RT-PCR) Not Detected Not Detecte SARS-CoV-2 RNA (RT-PCR) Detected H Not Detecte My Orders Orders - IVANIA SHAH [employer] Cbc With Automated Diff (04/12/22 12:06) Magnesium (04/12/22 12:06) Comprehensive Metabolic Panel (04/12/22 12:06) Myoglobin Serum (04/12/22 12:06) Protime With Inr (04/12/22 12:06) Partial Thromboplastin Time (04/12/22 12:06) Monitor-Rhythm Ecg Trace Only (04/12/22 12:06) Ed Iv/Invasive Line Start (04/12/22 12:06) Bnp [place] (04/12/22 12:06) Troponin I [place] (04/12/22 12:06) Covid 19 Inhouse Test (04/12/22 12:06) Influenza A And B By Pcr (04/12/22 12:06) Fibrin Degradation Products (04/12/22 12:06) Lipase (04/12/22 12:06) Amylase (04/12/22 12:06) Lidocaine 2% Viscous 15 Ml (Xylocaine Vi (04/12/22 12:15) Antacid Suspension (Mylanta Suspension (04/12/22 12:15) Ct Angio Chest W (R/O Pe) (04/12/22 12:37) Ed Iv/Invasive Line Start (04/12/22 12:45) Ns Iv 1000 Ml (Sodium Chloride 0.9%) (04/12/22 12:45) Iohexol Injection (Omnipaque 350 Mg/Ml 1 (04/12/22 13:00) Received Contrast (Hold Metformin- Contr (04/12/22 13:00) Ns (Ivpb) (Sodium Chloride 0.9% Ivpb Bag (04/12/22 13:00) Chest 1 View, Ap/Pa Only (04/12/22 12:06) Troponin I [place] (04/12/22 14:01) Ed Admission (Communication) (04/12/22 15:54) Medications Given in ED Current Medications Medications Dose Ordered Sig/Jorgito Route Start Time Stop Time Status Last Admin Dose Admin Al Hydrox/Mg Hydrox/Simethicone 30 ml ONCE ONCE PO 04/12/22 12:15 04/12/22 12:16 DC 04/12/22 12:15 30 ML Iohexol 75 ml ONCE ONCE IV 04/12/22 13:00 04/12/22 13:01 DC 04/12/22 13:22 83 ML Lidocaine HCl 15 ml ONCE ONCE PO 04/12/22 12:15 04/12/22 12:16 DC 04/12/22 12:15 15 ML Sodium Chloride 100 ml ONCE ONCE IV 04/12/22 13:00 04/12/22 13:01 DC 04/12/22 13:23 80 ML Vital Signs/I&O 04/12/22 11:50 Temp 36.4 Pulse 82 Resp 19 B/P (MAP) 146/108 (121) Pulse Ox 100 O2 Delivery Room Air Progress Progress Note #1: Time: 12:15 Progress Note Patient seen and evaluated, resting in bed, no acute distress. Based on exam and symptoms, differential diagnosis includes but is not limited to GA, pneumonia, ACS, pulmonary embolism, pancreatitis, GERD, COVID/flu. Work-up i nitiated including COVID/flu swab, CBC, CMP, troponin, D-dimer, BNP, chest x- ray, lipase, amylase. Progress Note #2: Time: 12:45 Progress Note Labs reviewed. CBC grossly normal, slightly elevated RBCs 6.13, CMP shows slightly decreased CO2 of 20, anion gap slightly increased at 15. Troponin slightly elevated at 0.029, will complete a 3-hour troponin. D-dimer elevated at 1.22, CT angio chest ordered. Coag studies normal. Lipase and amylase normal. Progress Note #3: Time: 13:29 Progress Note Chest x-ray reviewed, no acute cardiopulmonary findings. Patient updated on results and plan. Progress Note #4: Time: 14:[address] angio chest reviewed, negative for PE. Positive for COVID. Progress Note #5: Time: 15:40 Progress Note Repeat troponin slightly increased at 0.033, will consult with cardiology. Initial ECG Impression Date: Apr 12, 2022 Initial ECG Impression Time: 11:56 Initial ECG Rate: 81 Initial ECG Rhythm: Normal Sinus Initial ECG Intervals: Normal Initial ECG Impression: Normal Initial ECG Comparisson: Unchanged Diagnostic Imaging Diagonstic Imaging: Xray Plain Films/CT/US/NM/MRI: chest Comments [facility] [place], [place] NAME: ADÁN PEÑA [facility] REC#: [id number] PT STATUS: REG ER : 1980 PHYSICIAN: IVANIA SHAH APRN ADMIT DATE: 04/12/22/ER Draft Date of Exam:04/12/22 CHEST 1 VIEW, AP/PA ONLY HISTORY: Chest pain. COMPARISON: 04/10/2022. TECHNIQUE: Frontal view of the chest. FINDINGS: Lung volumes are normal. No consolidation is seen. There is no pleural effusion or pneumothorax. The cardiac silhouette is normal in size. IMPRESSION: 1. No acute pulmonary abnormality. Dictated on workstation # [id number] Dict: 04/12/22 1320 Trans: 04/12/22 1323 [id number] Interpreted by: JEFF MEZA MD Electronically signed by: Snachez Imaging: CT Plain Films/CT/US/NM/MRI: chest Comments [facility], [place] NAME: ADÁN PEÑA [facility] REC#: [id number] PT STATUS: REG ER : 1980 PHYSICIAN: IVANIA SHAH [employer] ADMIT DATE: 04/12/22/ER Signed Date of Exam:04/12/22 CT ANGIO CHEST W (R/O PE) EXAM: CT angiography chest with intravenous contrast. DATE: April 12, 2022. INDICATION: 41-year-old male, chest pain. Covid positive. Elevated d-dimer. COMPARISON: Chest radiograph April 12, 2022. TECHNIQUE: Axial CT angiogram images of the chest were obtained with intravenous contrast. Coronal and sagittal reformats were obtained and provided. Three-dimensional reformats were also obtained and provided. All CT scans use one or more of the following dose optimizing techniques: automated exposure control, MA and/or KvP adjustment based on patient size and exam type or iterative reconstruction. FINDINGS: There is a 4 mm pleurally based right middle lobe pulmonary nodule on axial image 91. There are chronic cystic changes in the right upper lobe. This is asymmetric. There are also chronic cystic changes in the left lower lobe at 3 separate locations. These findings are not consistent with emphysema. There is no additional focal airspace consolidation. There is no pneumothorax. There is no pleural effusion. The central airways are patent. There is no identified pulmonary embolus. The heart is not enlarged. There is no pericardial effusion. There is no identified mediastinal, hilar, or axillary lymph node which meets CT size criteria for adenopathy. There is a 3 mm low-attenuation right renal lesion on axial image 158 which is too small to characterize. Evaluation of the additional imaged portions of the upper abdomen is unremarkable. There is no identified acute bony abnormality. IMPRESSION: 1. No identified pulmonary embolus or other acute cardiopulmonary abnormality. 2. Chronic cystic changes in the right upper lobe and left lower lobe which could relate to sequela of prior insult. Dictated by: Dictated on workstation # [id number] Dict: 04/12/22 1325 Trans: 04/12/22 1401 [id number] Interpreted by: BERONICA GAGNON MD Electronically signed by: BERONICA GAGNON MD 04/12/22 1401 Departure Communication (Admissions) Time/Spoke to Admitting Phy: 15:47 Discussed admission and recommendations from Dr. Gonzalez, coating inspector, with Dr. Hood. Dr. Hood will put in admission orders. Time/Spoke to Consulting Phy: 15:[address] Gonzalez, cardiology, for elevated troponin. Recommends admission with serial troponins, aspirin 81 mg daily, as well as Lovenox 40 mg daily. Impression Primary Impression: COVID Additional Impressions: Elevated troponin Chest pain Qualified Codes: R07.9 - Chest pain, unspecified Disposition: ADMITTED INPATIENT Condition: Stable Admissions Decision to Admit Reason: Admit from ER (General) Decision to Admit/Date: Apr 12, 2022 Time/Decision to Admit Time: 15:52 Departure-Patient Inst. Referrals: [facility] (PCP/Family) Primary Care Physician IVANIA SHAH APRN Apr 12, 2022 12:18
[2022-04-12 12:25] LABS: ALBUMIN 4.1 GM/DL (3.2-4.5); POTASSIUM 3.8 MMOL/L (3.6-5.0)
[2022-04-12 12:26] LABS: CALCIUM 9.1 MG/DL (8.5-10.1); PROTHROMBIN TIME PATIENT 13.7 SEC (12.2-14.7)
[2022-04-12 12:28] LABS: TOTAL PROTEIN 8.4 GM/DL (6.4-8.2)
[2022-04-12 12:30] LABS: BILIRUBIN,TOTAL 0.7 MG/DL (0.1-1.0)
[2022-04-12 12:31] LABS: CREATININE SERUM 0.91 MG/DL (0.60-1.30)
[2022-04-12 12:34] LABS: MAGNESIUM 2.2 MG/DL (1.6-2.4)
[2022-04-12] MEDS ORDERED: NS IV 1000 ML 1,000 ML IV SCH (12:45)
[2022-04-12] MEDS ORDERED: NS 100 ML (IVPB) BAG IV ONE (13:00)
[2022-04-12] MEDS ORDERED: HOLD METFORMIN - RECEIVED CONTRAST 20 ML VIAL IV SCH (13:00)
[2022-04-12] MEDS ORDERED: IOHEXOL 350 MG/ML 100 ML (OMNIPAQUE 350) VIAL IV ONE (13:00)
--- NOTE | 2022-04-12 13:23 | Diagnostic Imaging Report ---
HISTORY: Chest pain. COMPARISON: 04/10/2022. TECHNIQUE: Frontal view of the chest. FINDINGS: Lung volumes are normal. No consolidation is seen. There is no pleural effusion or pneumothorax. The cardiac silhouette is normal in size. IMPRESSION: 1. No acute pulmonary abnormality. Dictated by: Dictated on workstation # [id number]
--- NOTE | 2022-04-12 13:39 | Diagnostic Imaging Report ---
EXAM: CT angiography chest with intravenous contrast. DATE: April 12, 2022. INDICATION: 41-year-old male, chest pain. Covid positive. Elevated d-dimer. COMPARISON: Chest radiograph April 12, 2022. TECHNIQUE: Axial CT angiogram images of the chest were obtained with intravenous contrast. Coronal and sagittal reformats were obtained and provided. Three-dimensional reformats were also obtained and provided. All CT scans use one or more of the following dose optimizing techniques: automated exposure control, MA and/or KvP adjustment based on patient size and exam type or iterative reconstruction. FINDINGS: There is a 4 mm pleurally based right middle lobe pulmonary nodule on axial image 91. There are chronic cystic changes in the right upper lobe. This is asymmetric. There are also chronic cystic changes in the left lower lobe at 3 separate locations. These findings are not consistent with emphysema. There is no additional focal airspace consolidation. There is no pneumothorax. There is no pleural effusion. The central airways are patent. There is no identified pulmonary embolus. The heart is not enlarged. There is no pericardial effusion. There is no identified mediastinal, hilar, or axillary lymph node which meets CT size criteria for adenopathy. There is a 3 mm low-attenuation right renal lesion on axial image 158 which is too small to characterize. Evaluation of the additional imaged portions of the upper abdomen is unremarkable. There is no identified acute bony abnormality. IMPRESSION: 1. No identified pulmonary embolus or other acute cardiopulmonary abnormality. 2. Chronic cystic changes in the right upper lobe and left lower lobe which could relate to sequela of prior insult. Dictated by: Dictated on workstation # [id number]
[2022-04-12] MEDS ORDERED: CALCIUM CARBONATE 500 MG (TUMS) TAB.CHEW PO PRN (16:45)
[2022-04-12] MEDS ORDERED: ANTACID SUSP 30 ML UDC (MYLANTA) PO PRN (16:45)
[2022-04-12] MEDS ORDERED: ACETAMINOPHEN 325 MG TABLET PO PRN (16:45)
[2022-04-12] MEDS ORDERED: polyethylene glycoL POWDER 17 GM (MIRALAX) PACK PO PRN (16:45)
[2022-04-12] MEDS ORDERED: diphenhydrAMINE 25 MG TAB (BENADRYL) PO PRN (16:45)
[2022-04-12] MEDS ORDERED: ONDANSETRON 4 MG (ZOFRAN) ORAL DISSOLVE TAB PO PRN (16:45)
[2022-04-12] MEDS ORDERED: diphenhydrAMINE 50 MG/ML INJ (BENADRYL) IVP PRN (16:45)
[2022-04-12] MEDS ORDERED: ONDANSETRON 4 MG/2 ML (SDV) Z0FRAN IV PRN (16:45)
[2022-04-12] MEDS ORDERED: MILK OF MAGNESIA 400 MG/5 ML 30 ML UDC PO PRN (16:45)
[2022-04-12] MEDS: ENOXAPARIN 40 MG/0.4 ML (LOVENOX) SYR SC SCH (17:42)
[2022-04-12] MEDS ORDERED: guaiFENesin/DM (ROBITUSSIN DM) 10 ML UDC PO PRN (19:00)
[2022-04-12 19:37] VITALS: BP 132/78
[2022-04-12] MEDS: MELATONIN 3 MG TABLET PO PRN (20:17)
[2022-04-12] MEDS: DOCUSATE SODIUM 100 MG (COLACE) CAP PO SCH (20:30)
[2022-04-12] MEDS: SENNOSIDES 8.6 MG (SENOKOT) TAB PO SCH (20:30)
[2022-04-12] MEDS ORDERED: PANTOPRAZOLE 40 MG (PROTONIX) VIAL IV ONE (22:30)
[2022-04-12] MEDS ORDERED: FAMOTIDINE 20 MG (PEPCID) TABLET PO ONE (22:30)
[2022-04-12] MEDS ORDERED: HYDROmorphone 2 MG/ML VIAL (DILAUDID) IVP PRN (22:45)
[2022-04-12 23:15] VITALS: BP 123/80
[2022-04-13 03:47] VITALS: BP 140/93
[2022-04-13 07:49] VITALS: BP 107/53
[2022-04-13] MEDS: FAMOTIDINE 20 MG (PEPCID) TABLET PO SCH (08:01)
[2022-04-13] MEDS: SENNOSIDES 8.6 MG (SENOKOT) TAB PO SCH ×2 (08:02→21:05)
[2022-04-13] MEDS: PANTOPRAZOLE 40 MG (PROTONIX) VIAL IV SCH (08:02)
[2022-04-13] MEDS: DOCUSATE SODIUM 100 MG (COLACE) CAP PO SCH ×2 (08:02→21:05)
[2022-04-13] MEDS ORDERED: ASPIRIN 81 MG CHEW (CHILDREN'S ASA) PO SCH (09:00)
[2022-04-13 11:41] VITALS: BP 133/78
--- NOTE | 2022-04-13 12:12 | Consultation-Cardiology ---
HPI-Cardiology Cardiology Consultation: Date of Consultation 04/13/22 Time Seen by a Provider: 09:30 Date of Admission Attending Physician [place] Admitting Physician Admitting Physician: Irma Hood MD Attending Physician: Irma Hood MD Consulting Physician ENRICO CAREY MD, MA, FACP, FACC, [facility], CCDS HPI: Chief Complaint: Chest discomfort 41 yo man with chest pain since 04/08/22: L parasternal, lasting several hours at a time, w/o aggravating factors, relief in the ER yesterday with GI cocktail, not associated with other symptoms, nonradiating, occurring daily, feeling of pr essure, not experience previously No shortness of breath or palp or syncope or swelling Review of Systems-Cardiology Review of Systems Constitutional: malaise; No weight loss, No other Eyes: No vision change Ears/Nose/Throat: No ear discharge, No nasal drainage, No recent hearing loss Respiratory: As described under HPI Cardiovascular: As described under HPI Gastrointestinal: No diarrhea, No nausea, No vomiting Genitourinary: No dysuria, No hematuria Musculoskeletal: No back pain, No joint pain Skin: No rash, No ulcerations Psychiatric/Neurological: No seizure, No focal weakness, No syncope Hematologic: No bleeding abnormalities HCE-Gbynqu-Tdwbxl Hx Patient Social History Smoking Status: Current Everyday Smoker Have you traveled recently?: No Alcohol Use?: No Substance type: Marijuana Pt feels they are or have been: No Tobacco type used: Cigarettes Past Medical History PMH As described under Assessment. Family Medical History Family Medical History: No fam h/o early CAD or SCD Family History: Colon cancer 19 FATHER Diabetes mellitus 19 FATHER Allergies and Home Medications Allergies Coded Allergies: No Known Drug Allergies (Unverified , 07/15/19) Patient Home Medication List Home Medication List Reviewed: Yes Ketorolac Tromethamine (Ketorolac Tromethamine) 10 Mg Tablet, 20 MG PO Q8H Prescribed by: COREY ARTEAGA on 07/17/19 1109 Physical Exam-Cardiology Physical Exam Vital Signs/I&O 04/13/22 04/13/22 04/13/22 04/13/22 01:00 03:47 07:00 07:49 Temp 37.3 36.6 Pulse 80 80 78 97 Resp 18 15 B/P (MAP) 140/93 (109) 107/53 (71) Pulse Ox 98 96 O2 Delivery Room Air Room Air 04/13/22 04/13/22 08:00 11:41 Temp 36.8 Pulse 75 Resp 17 B/P (MAP) 133/78 (96) Pulse Ox 96 97 O2 Delivery Room Air Room Air 04/13/22 00:00 Intake Total 2200 ml Balance 2200 ml Capillary Refill : Less Than 3 Seconds Constitutional: AAO x 3, well-developed, well-nourished HEENT: EOMI, hearing is well preserved; No xanthelasmas are seen Neck: carotid pulses are 2 + bilaterally, with good upstrokes Respiratory: No accessory muscle use; chest expansion is symmetric, chest is bilaterally symmetric, other (good, bilateral air entry) Cardiovascular: regular rate-rhythm, S1 and S2, systolic murmur (soft RIDDHI at card base) Gastrointestinal: No tender; soft; No guarding, No rebound; audible bowel sounds Extremities: No clubbing, No cyanosis, No significant edema Neurologic/Psychiatric: oriented x 3, other (moves all limbs equally) Skin: No rash on exposed areas, No ulcerations on exposed areas Data Review Labs Laboratory Tests 04/12/22 12:15: Influenza Type A (RT-PCR) Not Detected, Influenza Type B (RT-PCR) Not Detected, SARS-CoV-2 RNA (RT-PCR) DetectedH 04/12/22 15:04: Troponin I 0.033H 04/12/22 21:17: Troponin I 0.068H Laboratory Tests 04/12/22 12:02 A/P-Cardiology Assessment/Admission Diagnosis Ac NSTEMI Covid-19 Chronic tobacco and marijuana use Discussion and Recomendations * Treated with ASA * Add bb * Recommend card cath. Rationale, procedure, risks, benefits, potential complications, alternatives of cath and possible ad hoc cor intervention reviewed. He understands and provides informed consent Clinical Quality Measures AMI/AHF: ASA po Prior to arrival: ENRICO Adams MD FACP FAC CCDS Apr 13, 2022 12:12
[2022-04-13] MEDS ORDERED: NS IV 1000 ML 1,000 ML IV SCH ×2 (12:30→16:00)
[2022-04-13] MEDS ORDERED: LIDOCAINE 1% INJ 20 ML VIAL ONE (12:47)
[2022-04-13] MEDS ORDERED: HEParin (CATH LAB) 2,000 ML IV ONE (12:48)
--- NOTE | 2022-04-13 13:13 | History & Physical-Hospitalist ---
DAVID MAGANA 04/13/22 1313: History of Present Illness HPI/Chief Complaint Pt is a 41yo male active chronic smoker presented to ED yesterday with SOB and chest pain. Pt states that he has been having tight sharp chest pain since saturday. Has been pretty constant 6 or 7/10 and worsens if he lays down or take a deep breath. Pt states that he has some associated muscle cramps in his legs and back. He has had previous episodes of vomiting and diarrhea, but currently only reports nausea. During the night pt was given protonix which helped his chest pain. Pt is COVID +. Pt denies fever, chills, cough, PARRA, and Dysuria. Date Seen 04/13/22 Time Seen by a Provider: 12:00 Attending Physician [facility] PCP Admitting Physician: Irma Rodriguez MD Attending Physician: Irma Rodriguez MD Referring Physician Date of Admission Apr 12, 2022 at 15:55 Home Medications & Allergies Home Medications Reviewed patient Home Medication Reconciliation performed by pharmacy medication reconciliations porcelain technician and/or nursing. Patients Allergies have been reviewed. Allergies Allergies Coded Allergies No Known Drug Allergies (Unverified07/15/19) Past Fuqovrp-Osmtzs-Qjuptl Hx Patient Social History Tobacco Use?: Yes Tobacco type used: Cigarettes Smoking Status: Current Everyday Smoker Smokeless Tobacco Frequency: Current Everyday User Use of E-Cig and/or Vaping dev: No E-Cig or Vaping type used: Marijuana Substance use?: Yes Substance type: Marijuana Alcohol Use?: No Pt feels they are or have been: No Immunizations Up To Date Tetanus Booster (TDap): Unknown Seasonal Allergies Seasonal Allergies: No Current Status Advance Directives: No Communicates: Verbally Primary Language: Faroese Preferred Spoken Language: Faroese Is interpretation needed?: No Implanted or Applied Medical D: None Past Medical History Currently Using CPAP: No Currently Using BIPAP: No Hemorrhoids, Polyps Blood Disorders: No Family Medical History Colon cancer 19 FATHER Diabetes mellitus 19 FATHER No Pertinent Family Hx Review of Systems Constitutional: No chills, No diaphoresis, No dizziness, No fever Respiratory: No cough; dyspnea on exertion, short of breath Cardiovascular: chest pain, edema Gastrointestinal: abdominal pain, diarrhea, nausea Genitourinary: No dysuria; frequency Psychiatric/Neurological: Headache Physical Exam Physical Exam Vital Signs Vital Signs - First Documented 04/12/22 11:50 Temp 36.4 Pulse 82 Resp 19 B/P (MAP) 146/108 (121) Pulse Ox 100 O2 Delivery Room Air Capillary Refill : Less Than 3 Seconds Height, Weight, BMI Height: '" Weight: lbs. oz. kg; 27.99 BMI Method: Results Results/Procedures Labs Laboratory Tests 04/12/22 12:02 Patient resulted labs reviewed. Imaging Date of Exam:04/12/22 CHEST 1 VIEW, AP/PA ONLY HISTORY: Chest pain. COMPARISON: 04/10/2022. TECHNIQUE: Frontal view of the chest. FINDINGS: Lung volumes are normal. No consolidation is seen. There is no pleural effusion or pneumothorax. The cardiac silhouette is normal in size. IMPRESSION: 1. No acute pulmonary abnormality. CT ANGIO CHEST W (R/O PE) EXAM: CT angiography chest with intravenous contrast. DATE: April 12, 2022. INDICATION: 41-year-old male, chest pain. Covid positive. Elevated d-dimer. COMPARISON: Chest radiograph April 12, 2022. TECHNIQUE: Axial CT angiogram images of the chest were obtained with intravenous contrast. Coronal and sagittal reformats were obtained and provided. Three-dimensional reformats were also obtained and provided. All CT scans use one or more of the following dose optimizing techniques: automated exposure control, MA and/or KvP adjustment based on patient size and exam type or iterative reconstruction. FINDINGS: There is a 4 mm pleurally based right middle lobe pulmonary nodule on axial image 91. There are chronic cystic changes in the right upper lobe. This is asymmetric. There are also chronic cystic changes in the left lower lobe at 3 separate locations. These findings are not consistent with emphysema. There is no additional focal airspace consolidation. There is no pneumothorax. There is no pleural effusion. The central airways are patent. There is no identified pulmonary embolus. The heart is not enlarged. There is no pericardial effusion. There is no identified mediastinal, hilar, or axillary lymph node which meets CT size criteria for adenopathy. There is a 3 mm low-attenuation right renal lesion on axial image 158 which is too small to characterize. Evaluation of the additional imaged portions of the upper abdomen is unremarkable. There is no identified acute bony abnormality. IMPRESSION: 1. No identified pulmonary embolus or other acute cardiopulmonary abnormality. 2. Chronic cystic changes in the right upper lobe and left lower lobe which could relate to sequela of prior insult. Assessment/Plan Admission Diagnosis COVID-19 NSTEMI Chronic Smoker Acid Reflux SOB and Chest Pain COVID + EKG Tropnonin- Elevated; Trending Up D-Dimer- Elevated Myoglobin- Elevated CTA- No acute abnormalities; Chronic cystic changes Cardiology Consulted and Emt Driver scheduled Pt was NPO and ate breakfast; Nurse is contacting Cardiology on next steps Protonix for Acid Reflux Aspirin ppx Clinical Quality Measures AMI/AHF: ASA po Prior to arrival: No IRMA RODRIGUEZ MD 04/13/22 1743: History of Present Illness Source: patient Exam Limitations: no limitations Time Seen by a Provider: 12:05 Past Ealrrun-Inwnbm-Nvzadr Hx Patient Social History Tobacco Use?: Yes Smoking Status: Current Everyday Smoker Substance use?: Yes Substance type: Marijuana Alcohol Use?: No Past Medical History Surgeries: Abdominal Family Medical History Colon cancer 19 FATHER Diabetes mellitus 19 FATHER Physical Exam Physical Exam General Appearance: No Apparent Distress, WD/WN HEENT: PERRL/EOMI, Pharynx Normal Neck: Normal Inspection, Supple Respiratory: Lungs Clear, Normal Breath Sounds, No Respiratory Distress Cardiovascular: Regular Rate, Rhythm, No Edema, No Murmur Gastrointestinal: Normal Bowel Sounds, Non Tender, Soft Extremity: Normal Inspection, No Pedal Edema Neurologic/Psychiatric: Alert, Normal Mood/Affect Skin: Normal Color, Warm/Dry Results Results/Procedures Imaging: Reviewed Imaging Report Assessment/Plan Admission Diagnosis Elevated troponin Admission Status: Observation Assessment and Plan Admitted with elevated troponin. COVID positive. CT PE negative. Cardiology consulted and planning for left heart cath. Diagnosis/Problems Diagnosis/Problems (1) Elevated troponin Status: Acute (2) COVID Status: Acute Supervisory-Addendum Brief Verification & Attestation Participated in pt care: history, MDM, physical Personally performed: exam, history, MDM, supervision of care Care discussed with: Medical Student Procedures: n/a Results interpretation: Verified all documentation A medical student performed and documented this service in my presence. I reviewed and verified all information documented by the medical student and made modifications to such information, when appropriate. I personally performed the physical exam and medical decision making. DAVID MAGANA Apr 13, 2022 13:13 IRMA RODRIGUEZ MD Apr 13, 2022 17:43
[2022-04-13] MEDS ORDERED: fentaNYL INJ 100 MCG/2 ML AMP ONE (14:24)
[2022-04-13] MEDS ORDERED: MIDAZOLAM 5 MG/5 ML (VERSED) VIAL ONE (14:24)
[2022-04-13] MEDS ORDERED: ONDANSETRON 4 MG/2 ML (SDV) Z0FRAN ONE (15:38)
[2022-04-13] MEDS ORDERED: PATIENT MAY USE OWN MEDS, ALL PO SCH (16:00)
[2022-04-13 16:15] VITALS: BP 129/97
[2022-04-13] MEDS: ENOXAPARIN 40 MG/0.4 ML (LOVENOX) SYR SC SCH (17:32)
[2022-04-13 19:19] VITALS: BP 163/98
--- NOTE | 2022-04-13 21:47 | CARDIAC CATHETERIZATION ---
CARDIAC CATHETERIZATION REPORT INDICATION: The patient is a 41-year-old gentleman who was hospitalized with chest discomfort. Troponin was mildly elevated, suggestive of acute coronary syndrome. Informed consent was obtained for cardiac catheterization. DESCRIPTION OF PROCEDURE: The patient was brought to the cardiac catheterization laboratory in fasting state. Right groin was prepped and draped in the usual sterile fashion. A 1% lidocaine was used as local anesthesia. Modified Seldinger technique was used to advance a 5-Swedish sheath in the right femoral artery, 5-Swedish JL4 catheter for left coronary angiography and 5-Swedish JR4 catheter was used for right coronary angiography. A 5-Swedish pigtail catheter was used for left heart catheterization and left ventricular angiography. At the end of the procedure, angiography was carried out through the right femoral artery and Mynx was used to achieve hemostasis. He tolerated the procedure well. HEMODYNAMICS: Left ventricular end diastolic pressure following coronary angiography was 0 mmHg. There was no significant pressure gradient on pullback across the aortic valve. CORONARY ANGIOGRAPHY: Left main coronary artery, left anterior descending artery, left circumflex artery and right coronary artery are angiographically normal and of large caliber. The left circumflex artery is dominant. LEFT VENTRICULAR ANGIOGRAPHY: Left left ventricular angiography was carried out in the right anterior oblique projection. No distinct regional wall motion abnormalities seen. Left ventricular ejection fraction is 50-55%. CONCLUSIONS: 1. No angiographically significant coronary artery disease. 2. Normal global left systolic function with an ejection fraction of 50-55%. 3. Low left ventricular end-diastolic pressure. DISCUSSION AND RECOMMENDATIONS: Based on the results of the study, his chest discomfort does not appear to be of cardiac origin. Continuing risk factor modification is advised. Intravenous fluids are being continued because the left ventricular end-diastolic pressure is indicative of some degree of dehydration. Job ID: [id number] DocumentID: [id number] Dictated Date: 04/13/2022 16:06:01 Cutting Room Supervisor Date: 04/13/2022 21:45:00 Dictated By: ENRICO CAREY MD; POLLY; FACP; TIMOTHYC; CHU
[2022-04-13 23:50] VITALS: BP 140/94
[2022-04-14] MEDS ORDERED: HYDROmorphone 2 MG/ML VIAL (DILAUDID) ONE ×2 (03:19→19:27)
[2022-04-14] MEDS: HYDROmorphone 2 MG/ML VIAL (DILAUDID) IV PRN ×5 (03:24→21:29)
[2022-04-14 04:14] VITALS: BP 112/62
[2022-04-14 08:12] VITALS: BP 128/67
[2022-04-14] MEDS: PANTOPRAZOLE 40 MG (PROTONIX) VIAL IV SCH (09:07)
[2022-04-14] MEDS: FAMOTIDINE 20 MG (PEPCID) TABLET PO SCH (09:07)
[2022-04-14] MEDS: DOCUSATE SODIUM 100 MG (COLACE) CAP PO SCH ×2 (10:09→21:21)
[2022-04-14] MEDS: SENNOSIDES 8.6 MG (SENOKOT) TAB PO SCH ×2 (10:09→21:21)
[2022-04-14 11:50] VITALS: BP 144/98
[2022-04-14] MEDS ORDERED: OXYC5TAB PO (12:54)
--- NOTE | 2022-04-14 13:07 | Physical Therapy Evaluation ---
PT Evaluation-General Medical Diagnosis Admission Date Apr 12, 2022 at 15:55 Medical Diagnosis: Covid Onset Date: Apr 07, 2022 Therapy Diagnosis Therapy Diagnosis: difficulty with walking Precautions Precautions/Isolations: Airborne Isolation Weight Bear Status Right Lower Extremity: Right Full Weight Bearing Left Lower Extremity: Left Full Weight Bearing Referral Physician: Erwin Reason for Referral: Evaluation/Treatment Social History Home: Single Level Current Living Status: Spouse Entry Into Home: Stairs With Railing PT Steps Into Home: 8 PT Steps Inside Home: 0 Prior Prior Level of Function SCALE: Activities may be completed with or without assistive devices. 1-Bnkhpjixxa-sahxkya completes the activity by him/herself with no assistance from a helper. 5-Set-up or Clean-up Assistance-helper sets up or cleans up; patient completes activity. [place] assists only prior to or following the activity. 4-Supervision or Touching Assistance-helper provides verbal cues and/or touching/steadying and/or contact guard assistance as patient completes activity. Assistance may be provided throughout the activity or intermittently. 3-Partial/Moderate Assistance-helper does LESS THAN HALF the effort. [place] lif ts, holds or supports trunk or limbs, but provides less than half the effort. 2-Substantial/Maximal Assistance-helper does MORE THAN HALF the effort. [place] lifts or holds trunk or limbs and provides more than half the effort. 0-Seoaeyyjw-nvcjeo does ALL the effort. Patient does none of the effort to complete the activity. Or, the assistance of 2 or more helpers is required for the patient to complete the activity. If activity was not attempted, code reason: 7-Patient Refused. 9-Not Applicable-not attempted and the patient did not perform the activity before the current illness, exacerbation or injury. 10-Not Attempted due to Environmental Limitations-(lack of equipment, weather restraints, etc.). 88-Not Attempted due to Medical Conditions or Safety Concerns. Bed Mobility: 6 Transfers (B,C,W/C): 6 Gait: 6 Stairs: 6 Indoor Mobility (Ambulation): Independent Stairs: Independent Prior Devices Use: None PT Evaluation-Current Subjective The patient states that he got Covid last Saturday. He states that he was hospitalized on Saturday. He states that he is now having a lot of pain in his legs and he can't use them. He states that he fell a few hours ago in his room. Pain Numeric Pain Scale: 9 ROM/Strength Strength Lower Extremities 2-/5 Transfers Roll Left to Right (QC): 5 Sit to Lying (QC): 5 Lying to Sitting/Side of Bed(Q: 5 Sit to Stand (QC): 5 Gait Does the Patient Walk?: Yes Mode of Locomotion: Walk Anticipated Mode of Locomotion: Walk Walk 10 feet (QC): 88 Walk 50 ft with 2 Turns(QC): 88 Walk 150 ft (QC): 88 Walking 10ft/uneven surface-QC: 88 Distance: 5 Gait Assistive Device: Handheld Assist Comments/Gait Description Patient unable to picker legs during gait. He shuffles both LE's. He is unable to bring his foot up onto a step. Stairs 1 Step (curb) (QC): 88 4 Steps (QC): 88 12 Steps (QC): 88 Balance Sitting Static: Normal Sitting Dynamic: Good Standing Static: Fair Standing Dynamic: Fair Assessment/Needs 41 y.o. male with a diagnosis of Covid. He is having severe pain in the lower extremities and is not able to safely ambulate or perform steps. Rehab Potential: Good PT Halfway Goals Exchange Trouble Shooter Goals PT Halfway Goals Time Frame: Apr 21, 2022 Roll Left & Right (QC): 6 Sit to Lying (QC): 6 Lying-Sitting on Side/Bed(QC): 6 Sit to Stand (QC): 6 Chair/Tav-tu-Oyykc Xfer(QC): 6 Toilet Transfer (QC): 6 Car Transfer (QC): 6 Does the Patient Walk: Yes Walk 10 feet (QC): 6 Walk 50ft with 2 Turns (QC): 6 Walk 150 ft (QC): 6 Walking 10ft on Uneven Surface: 6 1 Step (curb) (QC): 6 4 Steps (QC): 6 12 Steps (QC): 6 Picking up an Object (QC): 6 PT Plan Problem List Problem List: Activity Tolerance, Functional Strength, Safety, Balance, Gait, Transfer, Bed Mobility, ROM Treatment/Plan Treatment Plan: Continue Plan of Care Treatment Plan: Bed Mobility, Education, Functional Activity Kedar, Functional Strength, Gait, Safety, Therapeutic Exercise, Transfers Treatment Duration: Apr 21, 2022 Frequency: 11 times per week Estimated Hrs Per Day: 1 hour per day Time Time In: 1240 Time Out: 1300 DATE: Apr 14, 2022 Total Billed Treatment Time: 20 Total Billed Treatment 1, Evaluation of low complexity x 20' ARTHUR ORLANDO PT Apr 14, 2022 13:07
[2022-04-14] MEDS ORDERED: GABAPENTIN 100 MG (NEURONTIN) CAP PO ONE (13:15)
--- NOTE | 2022-04-14 13:23 | Progress Note - Cardiology ---
Cardiology SOAP Progress Note Subjective: No cp or palp or syncope No n/v/d No shortness of breath at rest No leg or groin discomfort No leg dicoloration Objective: I&O/Vital Signs 04/14/22 04/14/22 04/14/22 04/14/22 04:14 07:00 08:12 11:50 Temp 37.1 36.1 35.7 Pulse 76 72 78 77 Resp 18 18 18 B/P (MAP) 112/62 (79) 128/67 (87) 144/98 (113) Pulse Ox 92 94 91 O2 Delivery Room Air Room Air Room Air 04/14/22 13:00 Pulse 77 04/14/22 00:00 Intake Total 1220 ml Balance 1220 ml Side: right Groin site without hematoma: Yes Condition: DP/PT pulses palpable Bruising: mild bruising Constitutional: AAO x 3, well-developed, well-nourished Respiratory: No accessory muscle use; chest expansion is symmetric, chest is bilaterally symmetric, other (good, bilateral air entry) Cardiovascular: regular rate-rhythm, S1 and S2, systolic murmur (soft RIDDHI at card base) Gastrointestional: No tender; soft; No guarding, No rebound; audible bowel sounds Extremities: No clubbing, No cyanosis, No significant edema Neurologic/Psychiatric: oriented x 3, other (moves all limbs equally) Skin: No rash on exposed areas, No ulcerations on exposed areas A/P: Assessment: Non-cardiac chest dicomfort and minimal troponin elevation of undetermined etiology (no evidence of ACS) - card cath on 04/13/22: No angiographically significant coronary artery disease. Normal global left systolic function with an ejection fraction of 50-55%. Low left ventricular end-diastolic pressure. Covid-19 Chronic tobacco and marijuana use Plan: * ASA and bb d/c'd after no CAD or evidence of TX found on card cath of 04/13/22 * LVEDP was indicative of dehydration/volume depletions. iv fluids were given post cath * We reviewed and discussed his cath findings in detail. Risk factor modification discussed and questions answered. Advised to quit smoking and marijuana use immediately and completely * W/u for non-cardiac chest pain is with the Hospitalist sachin. Ok to d/c from cardiac standpoint Clinical Quality Measures AMI/AHF: ASA po Prior to arrival: No ENRICO CAREY MD FACP FACC CCDS Apr 14, 2022 13:23
--- NOTE | 2022-04-14 14:06 | Progress Note - Hospitalist ---
DAVID MAGANA 04/14/22 1406: Subjective HPI/CC On Admission Date Seen by Provider: Apr 14, 2022 Time Seen by Provider: 09:10 Subjective/Events-last exam Pt was sitting up in the chair during the interview. Pt states he is in a lot of pain w/o pain medication. He says that it has been affecting his sleep as well. Pt received cardiac cath yesterday; his cath was normal and was planned for discharge today.Pt states he would like to stay one more day due to not being able to walk from leg and back pain. Review of Systems General: No Chills, No Night Sweats; Fatigue HEENT: No Head Aches Pulmonary: No Dyspnea, No Cough Cardiovascular: No: Chest Pain, Palpitations, Edema Gastrointestinal: No: Nausea, Vomiting, Diarrhea, Constipation Musculoskeletal: back pain, leg pain Neurological: No: Weakness, Numbness Objective Exam Vital Signs Vital Signs Date Time Temp Pulse Resp B/P (MAP) Pulse Ox O2 Delivery O2 Flow Rate FiO2 04/14/22 13:00 77 04/14/22 11:50 35.7 18 144/98 (113) 91 Room Air 04/13/22 16:15 2.00 Capillary Refill : Less Than 3 Seconds General Appearance: No Apparent Distress Respiratory: Chest Non Tender, Lungs Clear, Normal Breath Sounds Cardiovascular: Regular Rate, Rhythm, No Edema, No Murmur, Normal Peripheral Pulses Gastrointestinal: Normal Bowel Sounds, Non Tender, Soft Rectal: Deferred Back: Vertebral Tenderness Extremity: Other (Generalized LE pain ) Neurologic/Psychiatric: Alert, Oriented x3, Motor Weakness Skin: Normal Color, Warm/Dry Results/Procedures Lab Patient resulted labs reviewed. Imaging: Reviewed Imaging Report Assessment/Plan Assessment and Plan Assess & Plan/Chief Complaint COVID-19 SOB and Severe Myalgias Pain Meds - Dilaudid PT consulted - Patient unable to car pick up driver legs during gait. He shuffles both LE's. He is unable to bring his foot up onto a step. NSTEMI Aspirin ppx EKG Tropnonin- Elevated; Trending Up D-Dimer- Elevated Myoglobin- Elevated CTA- No acute abnormalities; Chronic cystic changes Cardiology Consulted and Photocomposition Keyboard Operator - No acute abnormalities and normal EF Costochondritis v. Acid reflux Chest pain Improved w/ Protonix Likely Acid reflux; pt states has had previous episodes of acid reflux in the past Chronic Smoker Clinical Quality Measures AMI/AHF: ASA po Prior to arrival: No WENCESLAO RODRIGUEZ MD 04/14/22 1617: Subjective HPI/CC On Admission Time Seen by Provider: 11:40 Objective Exam General Appearance: No Apparent Distress, WD/WN Respiratory: Lungs Clear, No Respiratory Distress Cardiovascular: Regular Rate, Rhythm, No Murmur Gastrointestinal: Normal Bowel Sounds, Soft Extremity: Normal Inspection, No Pedal Edema Neurologic/Psychiatric: Alert, Oriented x3, Motor Weakness Skin: Normal Color, Warm/Dry Assessment/Plan Assessment and Plan Assess & Plan/Chief Complaint Admitted with elevated troponin. Left heart cath negative. Pain resolved. Now reporting he can not walk, though he was able to move from his bed to his chair and back today. PT ordered. We will obtain a CT spine for further evaluation. Diagnosis/Problems Diagnosis/Problems (1) Back pain Status: Acute Qualifiers: (2) Weakness Status: Acute (3) Elevated troponin Status: Acute (4) COVID Status: Acute Supervisory-Addendum Brief Verification & Attestation Participated in pt care: history, MDM, physical Personally performed: exam, history, MDM, supervision of care Care discussed with: Medical Student Procedures: n/a Results interpretation: Verified all documentation A medical student performed and documented this service in my presence. I reviewed and verified all information documented by the medical student and made modifications to such information, when appropriate. I personally performed the physical exam and medical decision making. DAVID MAGANA Apr 14, 2022 14:06 WENCESLAO RODRIGUEZ MD Apr 14, 2022 16:17
--- NOTE | 2022-04-14 14:55 | Diagnostic Imaging Report ---
PROCEDURE: CT thoracic and lumbar spine with and without contrast. TECHNIQUE: CT imaging of the thoracic and lumbar spine before and after the administration of intravenous contrast. Auto Exposure Controls were utilized during the CT exam to meet ALARA standards for radiation dose reduction. INDICATION: Low back pain with bilateral lower extremity weakness. COMPARISON: None. DISCUSSION: Mild dextroscoliosis of the midthoracic spine. No vertebral body anomaly. The intervertebral disc spaces are maintained throughout the thoracic spine. Lumbar spine is anatomic in alignment. Small disc bulges are noted at L4-L5 and L5-S1. However there does not appear to be severe central canal stenosis. No neural foraminal stenosis at any level. There is mild facet arthropathy within the lower-most lumbar spine. The remainder of the facet joints are well-maintained. Emphysematous changes noted within the lungs, incompletely viewed, advanced for age. The remainder of the soft tissues are unremarkable. Sacroiliac joints are maintained. No osseous lesion. IMPRESSION: 1. No acute osseous abnormality within the thoracic and lumbar spine. 2. Disc bulges noted at L4-L5 and L5-S1. No definite severe central canal stenosis identified. MRI could further evaluate as indicated. 3. Emphysema, advanced for age. Dictated by: Dictated on workstation # [id number]
[2022-04-14 15:27] LABS: BASOPHILS % (AUTO) 0 % (0-10); EOSINOPHILS % (AUTO) 0 % (0-10); HEMATOCRIT 48 % (40-54); HEMOGLOBIN 15.2 g/dL (13.3-17.7); LYMPHOCYTES % (AUTO) 26 % (12-44); MEAN CORPUSCULAR HEMOGLOBIN 27 pg (25-34); MEAN CORPUSCULAR HGB CONC 31 g/dL (32-36); MEAN CORPUSCULAR VOLUME 84 fL (80-99); MEAN PLATELET VOLUME 10.6 fL (9.0-12.2); MONOCYTES # (AUTO) 0.3 X 10^3 (0.0-1.0); MONOCYTES % (AUTO) 8 % (0-12); NEUTROPHILS # (AUTO) 2.5 X 10^3 (1.8-7.8); NEUTROPHILS % (AUTO) 65 % (42-75); PLATELET COUNT 128 10^3/uL (130-400); WHITE BLOOD COUNT 3.9 10^3/uL (4.3-11.0)
[2022-04-14 15:47] LABS: ALBUMIN 3.6 GM/DL (3.2-4.5); CALCIUM 8.4 MG/DL (8.5-10.1); CREATININE SERUM 0.84 MG/DL (0.60-1.30); POTASSIUM 4.2 MMOL/L (3.6-5.0); TOTAL PROTEIN 7.7 GM/DL (6.4-8.2)
[2022-04-14 16:00] VITALS: BP 139/96
[2022-04-14] MEDS ORDERED: ZOLPIDEM 5 MG (AMBIEN) TAB PO PRN (16:30)
[2022-04-14] MEDS ORDERED: CYCLOBENZAPRINE 10 MG (FLEXERIL) TAB PO ONE (16:30)
[2022-04-14] MEDS: ENOXAPARIN 40 MG/0.4 ML (LOVENOX) SYR SC SCH (16:33)
[2022-04-14] MEDS: LACTATED RINGERS 1,000 ML IV SCH ×2 (16:35→22:54)
[2022-04-14] MEDS: LIDOCAINE 4% (SALONPAS) PATCH TOP SCH (16:38)
[2022-04-14 20:00] VITALS: BP 131/72
[2022-04-14] MEDS ORDERED: CYCLOBENZAPRINE 10 MG (FLEXERIL) TAB PO SCH (21:00)
[2022-04-14] MEDS: CYCLOBENZAPRINE 10 MG (FLEXERIL) TAB PO SCH (21:21)
[2022-04-14] MEDS: GABAPENTIN 100 MG (NEURONTIN) CAP PO SCH (21:21)
[2022-04-14] MEDS: PATCH REMOVAL TP SCH (21:30)
[2022-04-14 23:46] VITALS: BP 148/98
[2022-04-15] VITALS (8 sets, daily range): BP systolic 122–167; BP diastolic 75–104
[2022-04-15] MEDS: HYDROmorphone 2 MG/ML VIAL (DILAUDID) IV PRN ×8 (00:42→19:31)
[2022-04-15] MEDS: LACTATED RINGERS 1,000 ML IV SCH ×5 (04:31→19:31)
[2022-04-15 06:37] LABS: POTASSIUM 4.1 MMOL/L (3.6-5.0)
[2022-04-15 06:38] LABS: CALCIUM 8.3 MG/DL (8.5-10.1)
[2022-04-15 06:43] LABS: CREATININE SERUM 0.75 MG/DL (0.60-1.30)
[2022-04-15] MEDS: PANTOPRAZOLE 40 MG (PROTONIX) VIAL IV SCH (08:06)
[2022-04-15] MEDS: DOCUSATE SODIUM 100 MG (COLACE) CAP PO SCH ×2 (08:06→20:23)
[2022-04-15] MEDS: LIDOCAINE 4% (SALONPAS) PATCH TOP SCH (08:07)
[2022-04-15] MEDS: FAMOTIDINE 20 MG (PEPCID) TABLET PO SCH (08:07)
[2022-04-15] MEDS: GABAPENTIN 100 MG (NEURONTIN) CAP PO SCH ×2 (08:07→20:22)
[2022-04-15] MEDS: CYCLOBENZAPRINE 10 MG (FLEXERIL) TAB PO SCH ×3 (08:07→20:22)
[2022-04-15] MEDS: SENNOSIDES 8.6 MG (SENOKOT) TAB PO SCH ×2 (08:18→20:23)
--- NOTE | 2022-04-15 12:36 | Progress Note - Hospitalist ---
CHINODAVID 04/15/22 1236: Subjective HPI/CC On Admission Date Seen by Provider: Apr 15, 2022 Time Seen by Provider: 08:00 Subjective/Events-last exam Pt was laying in bed today upon coming into the room. Pt states that his pain is worsening, but denies any chest pain, palpitations, SOB, cough, abdominal pain, and N/V/D. Nurse states she tried helping him up in bed, but caused too much p ain. Review of Systems General: No Chills, No Night Sweats Pulmonary: No Dyspnea, No Cough Cardiovascular: No: Chest Pain, Palpitations Gastrointestinal: No: Nausea, Vomiting, Abdominal Pain, Diarrhea Neurological: Weakness Objective Exam Vital Signs Vital Signs Date Time Temp Pulse Resp B/P (MAP) Pulse Ox O2 Delivery O2 Flow Rate FiO2 04/15/22 12:13 122/82 (95) 04/15/22 11:18 35.9 89 18 92 Room Air 04/13/22 16:15 2.00 Capillary Refill : Less Than 3 Seconds General Appearance: Mild Distress, Other (Pt laying in bed; unable to get up due to leg pain) Respiratory: Chest Non Tender, Lungs Clear, Normal Breath Sounds Cardiovascular: Regular Rate, Rhythm, No Edema, No Murmur, Normal Peripheral Pulses Gastrointestinal: Normal Bowel Sounds, Non Tender, Soft Extremity: Calf Tenderness, Other (B/l LE pain w/ decreased ROM) Neurologic/Psychiatric: Alert, Oriented x3, Depressed Affect Skin: Normal Color, Warm/Dry Results/Procedures Lab Laboratory Tests 04/14/22 15:18 04/15/22 05:26 Patient resulted labs reviewed. Imaging: Reviewed Imaging Report Assessment/Plan Assessment and Plan Assess & Plan/Chief Complaint 41yo Male w/ Rabdomyolysis Secondary to COVID-19 Viral Myositis Rhabdomyolysis Elevated AST and ALT; Prompted total CK which was elevated IV Fluids preventing ATN and maintaining adequate renal function Cyclobenzaprine Gabapentin COVID-19 SOB and Severe Myalgias Continue Pain Meds - Dilaudid NSTEMI Aspirin ppx discontinued Managed by Cardiology Acid reflux Chest pain Improved w/ Protonix Likely Acid reflux; pt states has had previous episodes of acid reflux in the past Continue Protonix and Famotidine as needed Thrombocytopenia Platelet level dropped to 128 from 178 Monitor platelet levels Insomnia Zolpidem DVT ppx Lovenox Chronic Smoker Diagnosis/Problems Diagnosis/Problems (1) Rhabdomyolysis due to COVID-19 Status: Acute (2) COVID Status: Acute (3) Back pain Status: Acute Qualifiers: (4) Weakness Status: Acute (5) Chest pain Status: Acute Qualifiers: Qualified Codes: R07.9 - Chest pain, unspecified (6) Elevated troponin Status: Acute Clinical Quality Measures AMI/AHF: ASA po Prior to arrival: No WENCESLAO RODRIGUEZ MD 04/15/22 1709: Subjective HPI/CC On Admission Time Seen by Provider: 11:50 Objective Exam General Appearance: No Apparent Distress, WD/WN Respiratory: Lungs Clear, Normal Breath Sounds, No Respiratory Distress Cardiovascular: Regular Rate, Rhythm, No Edema, No Murmur Gastrointestinal: Normal Bowel Sounds, Non Tender, Soft Back: Other (paravertebral muscle tenderness) Extremity: Normal Inspection, No Pedal Edema, Calf Tenderness Neurologic/Psychiatric: Alert, Oriented x3, Motor Weakness Skin: Normal Color, Warm/Dry Assessment/Plan Assessment and Plan Assess & Plan/Chief Complaint Continue IV fluids for rhabdomyolysis. Pain regimen ordered. Monitor labs. Supervisory-Addendum Brief Verification & Attestation Participated in pt care: history, MDM, physical Personally performed: exam, history, MDM, supervision of care Care discussed with: Medical Student Procedures: n/a Results interpretation: Verified all documentation A medical student performed and documented this service in my presence. I reviewed and verified all information documented by the medical student and made modifications to such information, when appropriate. I personally performed the physical exam and medical decision making. DAVID MAGANA Apr 15, 2022 12:36 WENCESLAO RODRIGUEZ MD Apr 15, 2022 17:09
--- NOTE | 2022-04-15 14:21 | Progress Note - Cardiology ---
Cardiology SOAP Progress Note Subjective: No cp or abd pain Reports low back pain and bilateral leg pain and weakness that he has had since 04/09/22 Denies palp or syncope Denies n/v/d Denies fever or chills Reports gen malaise Objective: I&O/Vital Signs 04/15/22 04/15/22 04/15/22 04/15/22 03:39 07:00 07:48 08:00 Temp 36.4 36.4 Pulse 85 84 76 Resp 16 18 B/P (MAP) 130/78 (95) 167/97 (120) Pulse Ox 92 93 O2 Delivery Room Air Room Air Room Air 04/15/22 04/15/22 04/15/22 11:18 12:13 12:52 Temp 35.9 Pulse 89 89 Resp 18 B/P (MAP) 142/100 (114) 122/82 (95) Pulse Ox 92 O2 Delivery Room Air 04/15/22 00:00 Intake Total 980 ml Balance 980 ml Side: right Groin site without hematoma: Yes Condition: DP/PT pulses palpable Bruising: mild bruising Constitutional: AAO x 3, well-developed, well-nourished Respiratory: No accessory muscle use; chest expansion is symmetric, chest is bilaterally symmetric, other (good, bilateral air entry) Cardiovascular: regular rate-rhythm, S1 and S2, systolic murmur (soft RIDDHI at card base) Gastrointestional: No tender; soft; No guarding, No rebound; audible bowel sounds Extremities: No clubbing, No cyanosis, No significant edema Neurologic/Psychiatric: oriented x 3, other (moves all limbs equally) Skin: No rash on exposed areas, No ulcerations on exposed areas Results/Procedures: Labs Laboratory Tests 04/14/22 15:18: White Blood Count 3.9L, Red Blood Count 5.74H, Hemoglobin 15.2, Hematocrit 48, Mean Corpuscular Volume 84, Mean Corpuscular Hemoglobin 27, Mean Corpuscular Hemoglobin Concent 31L, Red Cell Distribution Width 16.3H, Platelet Count 128L, Mean Platelet Volume 10.6, Immature Granulocyte % (Auto) 1, Neutrophils (%) (Auto) 65, Lymphocytes (%) (Auto) 26, Monocytes (%) (Auto) 8, Eosinophils (%) (Auto) 0, Basophils (%) (Auto) 0, Neutrophils # (Auto) 2.5, Lymphocytes # (Auto) 1.0, Monocytes # (Auto) 0.3, Eosinophils # (Auto) 0.0, Basophils # (Auto) 0.0, Immature Granulocyte # (Auto) 0.0, Sodium Level 131L, Potassium Level 4.2, Chloride Level 96L, Carbon Dioxide Level 24, Anion Gap 11, Blood Urea Nitrogen 13, Creatinine 0.84, Estimat Glomerular Filtration Rate 112, BUN/Creatinine Ratio 15, Glucose Level 87, Calcium Level 8.4L, Corrected Calcium 8.7, Total Bilirubin 1.0, Aspartate Amino Transf (AST/SGOT) 301H, Alanine Aminotransferase (ALT/SGPT) 104H, Alkaline Phosphatase 66, Total Creatine Kinase 45468D, Total Protein 7.7, Albumin 3.6 04/15/22 05:26: Sodium Level 132L, Potassium Level 4.1, Chloride Level 97L, Carbon Dioxide Level 22, Anion Gap 13, Blood Urea Nitrogen 13, Creatinine 0.75, Estimat Glomerular Filtration Rate 116, BUN/Creatinine Ratio 17, Glucose Level 90, Calcium Level 8.3L, Total Creatine Kinase [id number] Laboratory Tests 04/14/22 15:18 04/15/22 05:26 A/P: Assessment: Non-cardiac chest dicomfort and minimal troponin elevation of undetermined etiology (no evidence of ACS) - card cath on 04/13/22: No angiographically significant coronary artery disease. Normal global left systolic function with an ejection fraction of 50-55%. Low left ventricular end-diastolic pressure. Covid-19 Bilateral leg weakness and pain since 03/29/22. CK is elevated - no evidence of vascular compromise of any leg Chronic tobacco and marijuana use Plan: * ASA and bb d/c'd after no CAD or evidence of AR found on card cath of 04/13/22 * LVEDP was indicative of dehydration/volume depletions. iv fluids were given post cath * We reviewed and discussed his cath findings in detail. Risk factor modification discussed and questions answered. Advised to quit smoking and marijuana use immediately and completely * W/u for non-cardiac chest pain is with the Hospitalist sachin. Ok to d/c from cardiac standpoint Clinical Quality Measures AMI/AHF: ASA po Prior to arrival: ENRICO Adams MD FACP FAC CCDS Apr 15, 2022 14:21
[2022-04-15] MEDS: ENOXAPARIN 40 MG/0.4 ML (LOVENOX) SYR SC SCH (16:31)
[2022-04-15] MEDS ORDERED: hydrALAZINE (APESOLINE) 20 MG/ML VIAL IV PRN (17:15)
[2022-04-15] MEDS: PATCH REMOVAL TP SCH (20:23)
[2022-04-16] MEDS: LACTATED RINGERS 1,000 ML IV SCH ×5 (00:32→23:56)
[2022-04-16] MEDS: HYDROmorphone 2 MG/ML VIAL (DILAUDID) IV PRN ×2 (00:32→05:47)
[2022-04-16 04:17] VITALS: BP 128/82
[2022-04-16 06:23] LABS: HEMOGLOBIN 13.5 g/dL (13.3-17.7)
[2022-04-16 06:24] LABS: MEAN PLATELET VOLUME 10.3 fL (9.0-12.2); WHITE BLOOD COUNT 4.7 10^3/uL (4.3-11.0)
[2022-04-16 06:43] LABS: BILIRUBIN,TOTAL 0.9 MG/DL (0.1-1.0); CALCIUM 8.4 MG/DL (8.5-10.1); CREATININE SERUM 0.69 MG/DL (0.60-1.30); POTASSIUM 4.1 MMOL/L (3.6-5.0); TOTAL PROTEIN 6.5 GM/DL (6.4-8.2)
[2022-04-16 07:21] VITALS: BP 121/78
[2022-04-16] MEDS: LIDOCAINE 4% (SALONPAS) PATCH TOP SCH (08:35)
[2022-04-16] MEDS: CYCLOBENZAPRINE 10 MG (FLEXERIL) TAB PO SCH ×3 (08:36→20:39)
[2022-04-16] MEDS: DOCUSATE SODIUM 100 MG (COLACE) CAP PO SCH ×2 (08:36→21:00)
[2022-04-16] MEDS: FAMOTIDINE 20 MG (PEPCID) TABLET PO SCH (08:36)
[2022-04-16] MEDS: GABAPENTIN 100 MG (NEURONTIN) CAP PO SCH ×2 (08:36→20:39)
[2022-04-16] MEDS: PANTOPRAZOLE 40 MG (PROTONIX) VIAL IV SCH (08:37)
--- NOTE | 2022-04-16 08:45 | Progress Note - Hospitalist ---
Subjective HPI/CC On Admission Date Seen by Provider: Apr 16, 2022 Subjective/Events-last exam Pt reports persistent pain. Discussed lab findings and continued treatment with IVF and pain regimen. Pt requested dose of pain medicine. Encouraged bowel regimen. Objective Exam Vital Signs Vital Signs Date Time Temp Pulse Resp B/P (MAP) Pulse Ox O2 Delivery O2 Flow Rate FiO2 04/16/22 07:28 91 04/16/22 07:21 36.4 18 121/78 (92) 92 Room Air 04/13/22 16:15 2.00 Capillary Refill : Less Than 3 Seconds General Appearance: No Apparent Distress Respiratory: Lungs Clear, No Respiratory Distress Cardiovascular: Regular Rate, Rhythm, No Murmur Results/Procedures Lab Laboratory Tests 04/16/22 06:15 Patient resulted labs reviewed. Imaging: Reviewed Imaging Report Assessment/Plan Assessment and Plan Assess & Plan/Chief Complaint Rhabdomyolysis due to COVID19 Continue IVF Continue pain regimen Discussed with RN and will try to optimize oral regimen as well as only received 1 dose yesterday Monitor I/Os I believe documented I/Os is not current as he should have 4800mL just from IVF and only 1060mL documented Creatinine stable and normal PT/OT NSTEMI Clean cath Troponin elevation likely due to rhabdo Cardiology consulted, appreciate recs Thrombocytopenia Trended down some May be dilutational DVT ppx: Lovenox Clinical Quality Measures AMI/AHF: ASA po Prior to arrival: RYANN oVra MD Apr 16, 2022 08:45
--- NOTE | 2022-04-16 10:04 | Physical Therapy Progress Note ---
Therapy Progress Note Patient adamantly declined PT stating, "I hurt to bad. Come back later." PT educated patient on importance of OOB activity and the possibility that PT may be unable to return on this date due to scheduling. Patient continued to decline. RN notified. 1 ref NESTOR JUAREZ PT Apr 16, 2022 10:04
[2022-04-16] MEDS: SENNOSIDES 8.6 MG (SENOKOT) TAB PO SCH ×2 (11:11→21:00)
[2022-04-16 11:16] VITALS: BP 125/76
[2022-04-16 16:04] VITALS: BP 131/90
[2022-04-16] MEDS: ENOXAPARIN 40 MG/0.4 ML (LOVENOX) SYR SC SCH (16:44)
--- NOTE | 2022-04-16 17:08 | Progress Note - Cardiology ---
Cardiology SOAP Progress Note Subjective: Shortness of breath is better No cp or palp or syncope No n/v/d Gen weakness and malaise present bilat leg discomfort and weakness since before this admission Objective: I&O/Vital Signs 04/16/22 04/16/22 04/16/22 04/16/22 07:21 07:28 08:00 11:16 Temp 36.4 36.6 Pulse 85 91 83 Resp 18 17 B/P (MAP) 121/78 (92) 125/76 (92) Pulse Ox 92 93 O2 Delivery Room Air Room Air Room Air 04/16/22 04/16/22 04/16/22 11:18 13:10 16:04 Temp 37.1 Pulse 89 84 91 Resp 16 B/P (MAP) 131/90 (104) Pulse Ox 92 O2 Delivery Room Air 04/16/22 00:00 Intake Total 760 ml Output Total 2575 ml Balance -1815 ml Side: right Groin site without hematoma: Yes Condition: DP/PT pulses palpable Bruising: mild bruising Constitutional: AAO x 3, well-developed, well-nourished Respiratory: No accessory muscle use; chest expansion is symmetric, chest is bilaterally symmetric, other (good, bilateral air entry) Cardiovascular: regular rate-rhythm, S1 and S2, systolic murmur (soft RIDDHI at card base) Gastrointestional: No tender; soft; No guarding, No rebound; audible bowel sounds Extremities: other (peripheral pulses are palpable and symmetric on both sides); No clubbing, No cyanosis, No significant edema Neurologic/Psychiatric: oriented x 3, other (moves all limbs equally) Skin: No rash on exposed areas, No ulcerations on exposed areas Results/Procedures: Labs Laboratory Tests 04/16/22 06:15: White Blood Count 4.7, Red Blood Count 5.06, Hemoglobin 13.5, Hematocrit 42, Mean Corpuscular Volume 83, Mean Corpuscular Hemoglobin 27, Mean Corpuscular Hemoglobin Concent 32, Red Cell Distribution Width 15.7H, Platelet Count 110L, Mean Platelet Volume 10.3, Percent Immature Platelet Fraction 5.5, Sodium Level 131L, Potassium Level 4.1, Chloride Level 98, Carbon Dioxide Level 24, Anion Gap 9, Blood Urea Nitrogen 12, Creatinine 0.69, Estimat Glomerular Filtration Rate 118, BUN/Creatinine Ratio 17, Glucose Level 93, Calcium Level 8.4L, Corrected Calcium 9.2, Total Bilirubin 0.9, Aspartate Amino Transf (AST/SGOT) 631H, Alanine Aminotransferase (ALT/SGPT) 188H, Alkaline Phosphatase 61, Total Creatine Kinase 83856R, Total Protein 6.5, Albumin 3.0L A/P: Assessment: Non-cardiac chest dicomfort and minimal troponin elevation of undetermined etiology (no evidence of ACS) - card cath on 04/13/22: No angiographically significant coronary artery disease. Normal global left systolic function with an ejection fraction of 50-55%. Low left ventricular end-diastolic pressure. Covid-19 Bilateral leg weakness and pain since 03/29/22. CK is elevated - no evidence of vascular compromise of any leg Chronic tobacco and marijuana use Plan: * ASA and bb d/c'd after no CAD or evidence of OK found on card cath of 04/13/22 * LVEDP was indicative of dehydration/volume depletions. iv fluids were given post cath * We reviewed and discussed his cath findings in detail. Risk factor modification discussed and questions answered. Advised to quit smoking and marijuana use immediately and completely * No evidence of vascular compromise in either leg Clinical Quality Measures AMI/AHF: ASA po Prior to arrival: ENRICO Adams MD FACP FAC CCDS Apr 16, 2022 17:08
[2022-04-16 19:54] VITALS: BP 131/93
[2022-04-16] MEDS: MELATONIN 3 MG TABLET PO PRN (20:39)
[2022-04-16] MEDS: PATCH REMOVAL TP SCH (20:40)
[2022-04-16 23:26] VITALS: BP 139/91
[2022-04-17] VITALS (7 sets, daily range): BP systolic 129–138; BP diastolic 82–89
[2022-04-17] MEDS: LACTATED RINGERS 1,000 ML IV SCH ×4 (01:42→20:52)
[2022-04-17 06:26] LABS: HEMOGLOBIN 13.4 g/dL (13.3-17.7)
[2022-04-17 06:28] LABS: MEAN PLATELET VOLUME 10.7 fL (9.0-12.2); WHITE BLOOD COUNT 4.7 10^3/uL (4.3-11.0)
[2022-04-17 06:44] LABS: ALBUMIN 2.9 GM/DL (3.2-4.5); BILIRUBIN,TOTAL 0.7 MG/DL (0.1-1.0); CALCIUM 8.6 MG/DL (8.5-10.1); CREATININE SERUM 0.69 MG/DL (0.60-1.30); POTASSIUM 3.9 MMOL/L (3.6-5.0); TOTAL PROTEIN 6.4 GM/DL (6.4-8.2)
[2022-04-17] MEDS: LIDOCAINE 4% (SALONPAS) PATCH TOP SCH (09:47)
[2022-04-17] MEDS: PANTOPRAZOLE 40 MG (PROTONIX) VIAL IV SCH (09:47)
[2022-04-17] MEDS: FAMOTIDINE 20 MG (PEPCID) TABLET PO SCH (09:47)
[2022-04-17] MEDS: DOCUSATE SODIUM 100 MG (COLACE) CAP PO SCH ×2 (09:47→20:54)
[2022-04-17] MEDS: SENNOSIDES 8.6 MG (SENOKOT) TAB PO SCH ×2 (09:47→20:54)
[2022-04-17] MEDS: GABAPENTIN 100 MG (NEURONTIN) CAP PO SCH ×2 (09:47→20:52)
[2022-04-17] MEDS: CYCLOBENZAPRINE 10 MG (FLEXERIL) TAB PO SCH ×3 (09:47→20:53)
--- NOTE | 2022-04-17 10:16 | Physical Therapy Daily Note ---
PT Daily Note-Current Subjective Patient agrees to PT. Pain Numeric Pain Scale: 10-Worst Possible Pain Location: Right, Left Location Body Site: Calf Pain Description: Burning Section J - Health Conditions 1. Rarely or not at all 2. Occasionally 3. Frequently 4. Almost constantly 8. Unable to answer Pain Effect on Sleep: 1 Pain Interference with Therapy: 3 Pain Interference w/Day-to-Day: 3 Mental Status Patient Orientation: Normal For Age Attachments: IV Transfers SCALE: Activities may be completed with or without assistive devices. 5-Xblqdsdbxb-mfyxsty completes the activity by him/herself with no assistance from a helper. 5-Set-up or Clean-up Assistance-helper sets up or cleans up; patient completes a ctivity. [place] assists only prior to or following the activity. 4-Supervision or Touching Assistance-helper provides verbal cues and/or touching/steadying and/or contact guard assistance as patient completes activity. Assistance may be provided throughout the activity or intermittently. 3-Partial/Moderate Assistance-helper does LESS THAN HALF the effort. [place] lifts, holds or supports trunk or limbs, but provides less than half the effort. 2-Substantial/Maximal Assistance-helper does MORE THAN HALF the effort. [place] lifts or holds trunk or limbs and provides more than half the effort. 3-Ncomghsma-kjnjbf does ALL the effort. Patient does none of the effort to complete the activity. Or, the assistance of 2 or more helpers is required for the patient to complete the activity. If activity was not attempted, code reason: 7-Patient Refused. 9-Not Applicable-not attempted and the patient did not perform the activity before the current illness, exacerbation or injury. 10-Not Attempted due to Environmental Limitations-(lack of equipment, weather restraints, etc.). 88-Not Attempted due to Medical Conditions or Safety Concerns. Lying to Sitting/Side of Bed(Q: 6 Sit to Stand (QC): 4 Chair/Szm-ao-Texmd Xfer(QC): 4 Toilet Transfer (QC): 4 Weight Bearing Right Lower Extremity: Right Full Weight Bearing Left Lower Extremity: Left Full Weight Bearing Gait Training Distance: 15' x 2 Walk 10 feet (QC): 4 Gait Assistive Device: FWW due to inactivity, patient has tight gastrocnemius bilaterally requiring time to stand erect and relax musculature Exercises Supine Ex: Ankle pumps, Quad Set, Heel Slides, Straight leg raise Supine Reps: 12 Seated Therapy Exercises: Ankle pumps, Long arc quads Seated Reps: 15 Assessment Patient requires time to complete all functional tasks due to increase c/o bilateral LE pain. Pain medication was issued prior to PT. PT to increase activity as tolerated by patient. PT Nursing Home Goals Nursing Home Goals PT Nursing Home Goals Time Frame: Apr 21, 2022 Roll Left & Right (QC): 6 Sit to Lying (QC): 6 Lying-Sitting on Side/Bed(QC): 6 Sit to Stand (QC): 6 Chair/Gco-jc-Jtxtb Xfer(QC): 6 Toilet Transfer (QC): 6 Car Transfer (QC): 6 Does the Patient Walk: Yes Walk 10 feet (QC): 6 Walk 50ft with 2 Turns (QC): 6 Walk 150 ft (QC): 6 Walking 10ft on Uneven Surface: 6 1 Step (curb) (QC): 6 4 Steps (QC): 6 12 Steps (QC): 6 Picking up an Object (QC): 6 PT Plan Treatment/Plan Treatment Plan: Continue Plan of Care Treatment Plan: Bed Mobility, Education, Functional Activity [place], Functional Strength, Gait, Safety, Therapeutic Exercise, Transfers Treatment Duration: Apr 21, 2022 Frequency: 11 times per week Estimated Hrs Per Day: 1 hour per day Time Time In: 814 Time Out: 837 DATE: Apr 17, 2022 Total Billed Treatment Time: 23 Total Billed Treatment 1 visit GT 10 min EX 13 min NESTOR JUAREZ PT Apr 17, 2022 10:16
--- NOTE | 2022-04-17 10:16 | Progress Note - Cardiology ---
Cardiology SOAP Progress Note Subjective: Sitting up in recliner at the bedside Family at the bedside x 1 C/O gen body discomfort No c/o CP or SOB Objective: I&O/Vital Signs 04/17/22 04/17/22 04/17/22 04/18/22 20:00 20:01 23:35 01:00 Temp 37.0 36.6 Pulse 101 100 97 Resp 18 18 B/P (MAP) 138/84 (102) 138/82 (100) Pulse Ox 94 92 O2 Delivery Room Air Room Air Room Air 04/18/22 03:47 Temp 36.7 Pulse 97 Resp 18 B/P (MAP) 119/66 (83) Pulse Ox 92 O2 Delivery Room Air 04/18/22 00:00 Intake Total 2540 ml Output Total 800 ml Balance 1740 ml Side: right Groin site without hematoma: Yes Condition: DP/PT pulses palpable Bruising: mild bruising Constitutional: AAO x 3, well-developed, well-nourished Respiratory: No accessory muscle use; chest expansion is symmetric, chest is bilaterally symmetric, other (good, bilateral air entry) Cardiovascular: regular rate-rhythm, S1 and S2, systolic murmur (soft RIDDHI at card base) Gastrointestional: No tender; soft; No guarding, No rebound; audible bowel sounds Extremities: other (peripheral pulses are palpable and symmetric on both sides); No clubbing, No cyanosis, No significant edema Neurologic/Psychiatric: oriented x 3, other (moves all limbs equally) Skin: No rash on exposed areas, No ulcerations on exposed areas Results/Procedures: Labs A/P: Assessment: Rhabdomyolysis (elevated CK, AST and ALT) - possibly secondary to COVID 19 - receiving IVF - management per medical services Mild thrombocytopenia - gradually improving Non-cardiac chest dicomfort and minimal troponin elevation of undetermined etiology (no evidence of ACS) - card cath on 04/13/22: No angiographically significant coronary artery disease. Normal global left systolic function with an ejection fraction of 50-55%. Low left ventricular end-diastolic pressure. Covid-19 Bilateral leg weakness and pain since 03/29/22. CK is elevated - no evidence of vascular compromise of any leg Chronic tobacco and marijuana use - cessation advised Plan: * ASA and bb d/c'd after no CAD or evidence of [place] found on card cath of 04/13/22 * Advised to quit smoking and marijuana use immediately and completely * No evidence of vascular compromise in either leg * Rhabdomyolysis possibly d/t COVID - management per medical services Clinical Quality Measures AMI/AHF: ASA po Prior to arrival: JUAN Hawkins Apr 17, 2022 10:16
--- NOTE | 2022-04-17 10:31 | Progress Note - Hospitalist ---
Subjective HPI/CC On Admission Date Seen by Provider: Apr 17, 2022 Subjective/Events-last exam Pt reports doing ok. Up with PT when I was in room. Was able to make it to the bathroom with walker. States he is drained now though. Objective Exam Vital Signs Vital Signs Date Time Temp Pulse Resp B/P (MAP) Pulse Ox O2 Delivery O2 Flow Rate FiO2 04/17/22 07:16 35.7 88 18 135/84 (101) 93 Room Air 04/13/22 16:15 2.00 Capillary Refill : Less Than 3 Seconds General Appearance: No Apparent Distress, WD/WN Respiratory: Lungs Clear, No Respiratory Distress Cardiovascular: Regular Rate, Rhythm, No Murmur Neurologic/Psychiatric: Alert, Oriented x3 Results/Procedures Lab Laboratory Tests 04/17/22 06:20 Patient resulted labs reviewed. Imaging: Reviewed Imaging Report Assessment/Plan Assessment and Plan Assess & Plan/Chief Complaint Rhabdomyolysis due to COVID19 Continue IVF Continue pain regimen- pain persistent but controlled with current regimen CK starting to trend down today Creatinine stable and normal PT/OT Liver enzymes essentially stable NSTEMI Clean cath Troponin elevation likely due to rhabdo Cardiology consulted, appreciate recs Thrombocytopenia stable DVT ppx: Lovenox Clinical Quality Measures AMI/AHF: ASA po Prior to arrival: No RYANN COOK MD Apr 17, 2022 10:31
[2022-04-17] MEDS: ENOXAPARIN 40 MG/0.4 ML (LOVENOX) SYR SC SCH (16:00)
[2022-04-17] MEDS: PATCH REMOVAL TP SCH (21:16)
[2022-04-18] MEDS: LACTATED RINGERS 1,000 ML IV SCH ×4 (01:40→17:08)
[2022-04-18 03:47] VITALS: BP 119/66
[2022-04-18 07:51] VITALS: BP 119/70
[2022-04-18 08:41] LABS: HEMOGLOBIN 12.5 g/dL (13.3-17.7); MEAN PLATELET VOLUME 10.3 fL (9.0-12.2); WHITE BLOOD COUNT 3.7 10^3/uL (4.3-11.0)
[2022-04-18 08:54] LABS: POTASSIUM 3.7 MMOL/L (3.6-5.0)
[2022-04-18 08:55] LABS: CALCIUM 8.5 MG/DL (8.5-10.1)
[2022-04-18 08:59] LABS: CREATININE SERUM 0.72 MG/DL (0.60-1.30)
[2022-04-18] MEDS: FAMOTIDINE 20 MG (PEPCID) TABLET PO SCH (09:05)
[2022-04-18] MEDS: DOCUSATE SODIUM 100 MG (COLACE) CAP PO SCH ×3 (09:05→20:09)
[2022-04-18] MEDS: CYCLOBENZAPRINE 10 MG (FLEXERIL) TAB PO SCH ×3 (09:05→20:09)
[2022-04-18] MEDS: LIDOCAINE 4% (SALONPAS) PATCH TOP SCH (09:05)
[2022-04-18] MEDS: SENNOSIDES 8.6 MG (SENOKOT) TAB PO SCH ×2 (09:05→20:10)
[2022-04-18] MEDS: GABAPENTIN 100 MG (NEURONTIN) CAP PO SCH ×2 (09:05→20:09)
--- NOTE | 2022-04-18 09:52 | Progress Note - Hospitalist ---
Subjective HPI/CC On Admission Date Seen by Provider: Apr 18, 2022 Subjective/Events-last exam Pt reports feeling better today. Still rates pain a 6/10 but down from 10/10 earlier this week. Hopeful to be able to get out of bed more. Objective Exam Vital Signs Vital Signs Date Time Temp Pulse Resp B/P (MAP) Pulse Ox O2 Delivery O2 Flow Rate FiO2 04/18/22 07:51 36.6 75 18 119/70 (86) 93 Room Air 04/13/22 16:15 2.00 Capillary Refill : Less Than 3 Seconds General Appearance: No Apparent Distress Respiratory: Lungs Clear, No Accessory Muscle Use, No Respiratory Distress Cardiovascular: Regular Rate, Rhythm, No Murmur Neurologic/Psychiatric: Alert, Oriented x3 Results/Procedures Lab Laboratory Tests 04/18/22 08:30 Patient resulted labs reviewed. Imaging: Reviewed Imaging Report Assessment/Plan Assessment and Plan Assess & Plan/Chief Complaint Rhabdomyolysis due to COVID19 Continue IVF but will decrease rate some Continue pain regimen- pain persistent but controlled with current regimen CK continues to trend down Creatinine stable and normal PT/OT Hopefully home in the next day or two if he continues to improve NSTEMI Clean cath Troponin elevation likely due to rhabdo Cardiology consulted, appreciate recs Thrombocytopenia stable, actually up slightly DVT ppx: Lovenox Clinical Quality Measures AMI/AHF: ASA po Prior to arrival: RYANN Vora MD Apr 18, 2022 09:52
--- NOTE | 2022-04-18 11:26 | Physical Therapy Progress Note ---
Therapy Progress Note Patient refuses therapy this morning. Patient says he has already been up walking in his room on his own a couple of times this morning and he just got back into bed. Will try to come back this after noon if able. VICENTE HENRY PT Apr 18, 2022 11:26
[2022-04-18 11:41] VITALS: BP 122/70
--- NOTE | 2022-04-18 14:21 | Physical Therapy Progress Note ---
Therapy Progress Note PEST CONTROL CHEMICAL TECHNICIAN arrives to see pt and pt is laying Supine in bed w/family present. Pt reports he had just walked about 30 minutes previous to PE[employer] CONTROL CHEMICAL TECHNICIAN arriving and does not want to work w/PT at this time. PT will check back w/Pt tomorrow. JEFF CROWELL PE[employer] CONTROL CHEMICAL TECHNICIAN Apr 18, 2022 14:21
[2022-04-18 16:48] VITALS: BP 138/79
[2022-04-18] MEDS: ENOXAPARIN 40 MG/0.4 ML (LOVENOX) SYR SC SCH (17:01)
[2022-04-18] MEDS: MELATONIN 3 MG TABLET PO PRN (20:09)
[2022-04-18] MEDS: PATCH REMOVAL TP SCH (20:15)
[2022-04-18 20:24] VITALS: BP 132/82
[2022-04-19 00:20] VITALS: BP 103/53
[2022-04-19] MEDS: LACTATED RINGERS 1,000 ML IV SCH ×3 (03:30→18:47)
[2022-04-19 03:33] VITALS: BP 130/64
[2022-04-19 05:24] LABS: HEMATOCRIT 39 % (40-54); HEMOGLOBIN 12.1 g/dL (13.3-17.7); MEAN CORPUSCULAR HEMOGLOBIN 26 pg (25-34); MEAN CORPUSCULAR HGB CONC 31 g/dL (32-36); MEAN CORPUSCULAR VOLUME 84 fL (80-99); MEAN PLATELET VOLUME 9.7 fL (9.0-12.2); PLATELET COUNT 137 10^3/uL (130-400); WHITE BLOOD COUNT 3.6 10^3/uL (4.3-11.0)
[2022-04-19 05:44] LABS: ALBUMIN 2.8 GM/DL (3.2-4.5)
[2022-04-19 05:45] LABS: POTASSIUM 3.8 MMOL/L (3.6-5.0)
[2022-04-19 05:46] LABS: CALCIUM 8.5 MG/DL (8.5-10.1)
[2022-04-19 05:47] LABS: TOTAL PROTEIN 6.1 GM/DL (6.4-8.2)
[2022-04-19 05:49] LABS: BILIRUBIN,TOTAL 0.4 MG/DL (0.1-1.0)
[2022-04-19 05:51] LABS: CREATININE SERUM 0.76 MG/DL (0.60-1.30)
[2022-04-19 08:17] VITALS: BP 133/74
[2022-04-19] MEDS: GABAPENTIN 100 MG (NEURONTIN) CAP PO SCH ×2 (08:45→20:23)
[2022-04-19] MEDS: FAMOTIDINE 20 MG (PEPCID) TABLET PO SCH (08:45)
[2022-04-19] MEDS: DOCUSATE SODIUM 100 MG (COLACE) CAP PO SCH ×2 (08:45→20:23)
[2022-04-19] MEDS: LIDOCAINE 4% (SALONPAS) PATCH TOP SCH (08:45)
[2022-04-19] MEDS: SENNOSIDES 8.6 MG (SENOKOT) TAB PO SCH ×2 (08:45→20:23)
[2022-04-19] MEDS: CYCLOBENZAPRINE 10 MG (FLEXERIL) TAB PO SCH ×3 (08:45→20:23)
--- NOTE | 2022-04-19 10:58 | Physical Therapy Progress Note ---
Therapy Progress Note Patient declined PT x 2 attempts. Patient reports he is up in his room independently without the walker. RN confirms. PT to dismiss patient from services at this time. 1 ref x 2 NESTOR JUAREZ PT Apr 19, 2022 10:58
[2022-04-19 11:43] VITALS: BP 121/78
--- NOTE | 2022-04-19 12:31 | Progress Note - Hospitalist ---
Subjective HPI/CC On Admission Date Seen by Provider: Apr 19, 2022 Objective Exam Vital Signs Vital Signs Date Time Temp Pulse Resp B/P (MAP) Pulse Ox O2 Delivery O2 Flow Rate FiO2 04/19/22 11:43 36.7 82 18 121/78 (92) 93 Room Air 04/19/22 09:00 2.00 Capillary Refill : Less Than 3 Seconds General Appearance: No Apparent Distress Respiratory: Lungs Clear, No Accessory Muscle Use, No Respiratory Distress Cardiovascular: Regular Rate, Rhythm, No Murmur Neurologic/Psychiatric: Alert, Oriented x3 Results/Procedures Lab Laboratory Tests 04/19/22 05:13 Patient resulted labs reviewed. Imaging: Reviewed Imaging Report Assessment/Plan Assessment and Plan Assess & Plan/Chief Complaint Rhabdomyolysis due to COVID19 Continue IVF at decreased rate Continue pain regimen- pain persistent but controlled with current regimen- has only needed oral meds CK continues to trend down Creatinine stable and normal Hopefully home tomorrow if he continues to improve NSTEMI Clean cath Troponin elevation likely due to rhabdo Cardiology consulted, appreciate recs Thrombocytopenia, resolved DVT ppx: Lovenox Clinical Quality Measures AMI/AHF: ASA po Prior to arrival: RYANN Vora MD Apr 19, 2022 12:31
[2022-04-19 15:26] VITALS: BP 126/87
[2022-04-19] MEDS: ENOXAPARIN 40 MG/0.4 ML (LOVENOX) SYR SC SCH (16:14)
[2022-04-19 19:17] VITALS: BP 134/90
[2022-04-19] MEDS: PATCH REMOVAL TP SCH (21:02)
[2022-04-20 00:02] VITALS: BP 131/80
[2022-04-20] MEDS: LACTATED RINGERS 1,000 ML IV SCH ×2 (03:43→04:26)
[2022-04-20 04:05] VITALS: BP 124/79
[2022-04-20 05:51] LABS: HEMATOCRIT 41 % (40-54); HEMOGLOBIN 13.2 g/dL (13.3-17.7); MEAN CORPUSCULAR HEMOGLOBIN 27 pg (25-34); MEAN CORPUSCULAR HGB CONC 32 g/dL (32-36); MEAN CORPUSCULAR VOLUME 83 fL (80-99); PLATELET COUNT 139 10^3/uL (130-400); WHITE BLOOD COUNT 3.5 10^3/uL (4.3-11.0)
[2022-04-20 06:26] LABS: ALBUMIN 2.7 GM/DL (3.2-4.5); BILIRUBIN,TOTAL 0.4 MG/DL (0.1-1.0); CALCIUM 8.5 MG/DL (8.5-10.1); CREATININE SERUM 0.72 MG/DL (0.60-1.30); POTASSIUM 3.9 MMOL/L (3.6-5.0); TOTAL PROTEIN 6.1 GM/DL (6.4-8.2)
[2022-04-20 08:15] VITALS: BP 133/83
[2022-04-20] MEDS: SENNOSIDES 8.6 MG (SENOKOT) TAB PO SCH (09:28)
[2022-04-20] MEDS: GABAPENTIN 100 MG (NEURONTIN) CAP PO SCH (09:28)
[2022-04-20] MEDS: DOCUSATE SODIUM 100 MG (COLACE) CAP PO SCH (09:28)
[2022-04-20] MEDS: FAMOTIDINE 20 MG (PEPCID) TABLET PO SCH (09:29)
[2022-04-20] MEDS: LIDOCAINE 4% (SALONPAS) PATCH TOP SCH (09:29)
[2022-04-20] MEDS: CYCLOBENZAPRINE 10 MG (FLEXERIL) TAB PO SCH (09:29)
--- NOTE | 2022-04-20 11:07 | Discharge Summary ---
Diagnosis/Chief Complaint Date of Admission Apr 14, 2022 at 20:10 Date of Discharge Admission Diagnosis Elevated troponin [facility] Discharge Diagnosis (1) Rhabdomyolysis due to COVID-19 Status: Acute (2) COVID Status: Acute (3) Back pain Status: Acute (4) Weakness Status: Acute (5) Chest pain Status: Acute (6) Elevated troponin Status: Acute Discharge Summary Discharge Physical Exam Allergies: Coded Allergies: No Known Drug Allergies (Unverified , 07/15/19) Vitals & I&Os Vital Signs Date Time Temp Pulse Resp B/P (MAP) Pulse Ox O2 Delivery O2 Flow Rate FiO2 04/20/22 08:15 36.3 72 18 133/83 (100) 93 Room Air 04/19/22 09:00 2.00 General Appearance: No Apparent Distress, WD/WN Cardiovascular: Regular Rate, Rhythm, No Murmur Neurologic/Psychiatric: Alert, Oriented x3 Hospital Course Patient was admitted to the hospital secondary to chest pain and an elevated troponin. He underwent cardiac cath which was clean. He had profound weakness and muscle pain and thus a CK was checked and was significantly elevated. This was trended and peaked around 50,000. He was treated with high rates of IV fluid. His kidney function remained normal throughout the entire hospitalization. Upon discharge his CK has been trending down every single day and he was able to ambulate without assistance. Pain was well controlled as well. He was discharged home in stable and improved condition to follow-up with a local PCP to follow-up this hospital stay. Labs (last 24 hrs) Laboratory Tests 04/20/22 05:45: White Blood Count 3.5L, Red Blood Count 4.96, Hemoglobin 13.2L, Hematocrit 41, Mean Corpuscular Volume 83, Mean Corpuscular Hemoglobin 27, Mean Corpuscular Hemoglobin Concent 32, Red Cell Distribution Width 15.5H, Platelet Count 139, Mean Platelet Volume 10.0, Sodium Level 136, Potassium Level 3.9, Chloride Level 103, Carbon Dioxide Level 23, Anion Gap 10, Blood Urea Nitrogen 11, Creatinine 0.72, Estimat Glomerular Filtration Rate 116, BUN/Creatinine Ratio 15, Glucose Level 98, Calcium Level 8.5, Corrected Calcium 9.5, Total Bilirubin 0.4, Aspartate Amino Transf (AST/SGOT) 243H, Alanine Aminotransferase (ALT/SGPT) 182H , Alkaline Phosphatase 65, Total Creatine Kinase 7359H, Total Protein 6.1L, Albumin 2.7L Patient resulted labs reviewed. Pending Labs Laboratory Tests 04/20/22 05:45: White Blood Count 3.5, Red Blood Count 4.96, Hemoglobin 13.2, Hematocrit 41, Mean Corpuscular Volume 83, Mean Corpuscular Hemoglobin 27, Mean Corpuscular Hemoglobin Concent 32, Red Cell Distribution Width 15.5, Platelet Count 139, Mean Platelet Volume 10.0, Sodium Level 136, Potassium Level 3.9, Chloride Level 103, Carbon Dioxide Level 23, Anion Gap 10, Blood Urea Nitrogen 11, Creatinine 0.72, Estimat Glomerular Filtration Rate 116, BUN/Creatinine Ratio 15, Glucose Level 98, Calcium Level 8.5, Corrected Calcium 9.5, Total Bilirubin 0.4, Aspartate Amino Transf (AST/SGOT) 243, Alanine Aminotransferase (ALT/SGPT) 182, Alkaline Phosphatase 65, Total Creatine Kinase 7359, Total Protein 6.1, Albumin 2.7 Imaging: Reviewed Imaging Report Discussion & Recommendations Discharge Planning: >30 minutes discharge planning Discharge Home Medications: Active Scripts Active Cyclobenzaprine HCl 10 Mg Tablet 10 Mg PO TID PRN Oxycodone HCl 5 Mg Tablet 5 Mg PO Q6H PRN 5 Days Instructions to patient/family Please see electronic discharge instructions given to patient. Clinical Quality Measures AMI/AHF: ASA po Prior to arrival: No Problem Qualifiers (1) Back pain: Back pain location: low back pain Chronicity: acute Back pain laterality: bilateral Sciatica presence: with sciatica (2) Chest pain: Chest pain type: unspecified Qualified Codes: R07.9 - Chest pain, unspecified RYANN COOK MD Apr 20, 2022 11:07
[2022-04-20] MEDS ORDERED: CYCL10TA25 PO (11:13)
--- NOTE | 2022-04-20 11:15 | Discharge Inst-Simple/Standard ---
Discharge Inst-Standard Discharge Medications New, Converted or Re-Newed RX: Transmitted to Pharmacy Patient Instructions/Follow Up Plan of Care/Instructions/FU: Please continue to take your medications as written. Please follow up with your primary care doctor to follow up this hospital stay. Activity as Tolerated: Yes Discharge Diet: No Restrictions Return to The Hospital For: Chest pain, shortness of breath, fever, weakness, if you feel you are getting worse. RYANN COOK MD Apr 20, 2022 11:15
[2022-04-20 11:44] VITALS: BP 148/91
[2022-04-20 12:10] VITALS: BP 148/91
== END 2022-04-20 12:10 | disposition home or self-care (01) | DRG 177 ==
LOC: EDUNIT# 11:40 → ER 11:42 → 4TH 15:55 → OBSVTOIN 04-14 20:10
PROVIDERS: ADMIT Internal Medicine; ATTEND Internal Medicine
PROC: 4A023N7 Measurement of Cardiac Sampling and Pressure, Left Heart, Percutaneous Approach (ICD-10-PCS; principal; 2022-04-13)
PROC: B2111ZZ Fluoroscopy of Multiple Coronary Arteries using Low Osmolar Contrast (ICD-10-PCS; 2022-04-13)
PROC: B2151ZZ Fluoroscopy of Left Heart using Low Osmolar Contrast (ICD-10-PCS; 2022-04-13)
PROC: 8E0ZXY6 Isolation (ICD-10-PCS; 2022-04-14)
DX: U07.1 COVID-19 (principal); I21.4 Non-ST elevation (NSTEMI) myocardial infarction; M62.82 Rhabdomyolysis; R77.8 Other specified abnormalities of plasma proteins; D69.6 Thrombocytopenia, unspecified; K21.9 Gastro-esophageal reflux disease without esophagitis; G47.00 Insomnia, unspecified; F17.210 Nicotine dependence, cigarettes, uncomplicated; M54.9 Dorsalgia, unspecified; M60.80 Other myositis, unspecified site; F12.90 Cannabis use, unspecified, uncomplicated
CPT/HCPCS: 36415; 71045; 71275; 72130; 72133; 80048; 80053; 82150; 82550; 83690; 83735; 83874; 83880; 84484; 85025; 85027; 85379; 85610; 85730; 87636; 93005; 93041; 93458; 94664; 94760; G0378